=== PATIENT | male | born 1940 | race Caucasian/White ===

== ENCOUNTER 2017-07-29 07:53 | Inpatient (IN) | payer MEDICARE, OTHER ==
[2017-07-29] VITALS (7 sets, daily range): BP systolic 107–129; BP diastolic 49–77
[~2017-07-29] VITALS: Ht 185 cm; Wt 100.0 kg
--- NOTE | ~2017-07-29 | PR ---
[place], [place] PROGRESS NOTE NAME: JESSIE VIVEROS UNIT #: [id number] ROOM: 509 DOCTOR: KRISSY LE MD BIRTHDATE: [birth year] DOS: 08/12/2017 PULMONARY ADDENDUM NOTE SUBJECTIVE: The patient was independently seen and examined with tcni-hl-[id number] encounter. History was confirmed. All the available labs were reviewed. The assessment for this patient and management were personally completed for today's visit. Note done by the medical pathologist was approved as well. The patient is currently kept n.p.o. last midnight for the scheduled bronchoscopy that will be done today. He has not reported any headache, nausea, vomiting, diarrhea, dizziness, headache or any new focal neurologic deficit. OBJECTIVE: VITAL SIGNS: For the patient which was recorded showed normal temperature, respiratory rate of 12, heart rate 82, blood pressure 120/78, pulse oxygen saturation on 2 liters nasal cannula at 94% saturation. HEENT: Shows no new change. Head was atraumatic. Eyes nonicterus. NECK: Supple. CARDIOVASCULAR: S1, S2 was audible. LUNGS: Noted with [id number] decreased breath sounds. There was no wheezing or crackles heard. ABDOMEN: Soft, nontender. EXTREMITIES: Without any edema. SKIN: No lesions or rashes. MUSCULOSKELETAL: No deformities. CENTRAL NERVOUS SYSTEM: The patient with right hemiparesis. LABORATORY DATA: The labs today for the patient was noted as normal BMP, except albumin 3.0. Urine culture with no bacterial growths. IMPRESSION: 1. Persistent severe nonproductive cough, suspected mucus impaction with the resolution of recent influenza infection and acute pneumonia, already treated and with completion of treatment. Small bilateral pleural fluid was also noted stable. 2. 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 3. Overall debility secondary to current acute illness. PLAN OF MANAGEMENT: Proceed with the bronchoscopy. Continue bronchodilators and other treatment as previously in progress. Any modification in treatment of the patient if necessary will be done after the bronchoscopy. Other supportive plan of management, care and therapies. [place], [place] PROGRESS NOTE NAME: JESSIE VIVEROS UNIT #: [id number] ROOM: 509 DOCTOR: AZIZ KRISSY SHERMAN MD BIRTHDATE: [birth year] KRISSY JIMENES MD CM:MANGO [phone] KRISSY SHERMAN MD 08/13/17 0132 interface
--- NOTE | ~2017-07-29 | PR ---
[place], [place] PROGRESS NOTE [id number] UN[facility] #: [id number] ROOM: 509 DOCTOR: JALIL SHERMAN MDKRISSY BIRTHDATE: [birth year] DOS: 08/11/2017 PULMONARY PROGRESS NOTE SUBJECTIVE: The patient was sitting on the side of his bed, eating his food. Mental status changes of the patient which were noted yesterday seemed to be better. CT scan of the head was done yesterday does not show any acute stroke or other abnormalities. The patient was noted excessive severe coughing, which has been noted episodic, could last several minutes with inability to expectorate any sputum. He was noted general weakness and fatigue. There were no symptoms of headache or diplopia. The patient has been noted history of past CVA with hemiparesis on the right side and general weakness persisted. Denies symptoms of wheezing. There were no abdominal pain. Diarrhea was noted. Abdominal pain also improved. OBJECTIVE: VITAL SIGNS: For the patient which has been recorded showed the temperature noted as normal, respiratory rate 16, heart rate of 85, blood pressure 123/72. HEENT: Shows head was atraumatic. Eyes nonicterus. NECK: Supple. CARDIOVASCULAR: S1, S2 is audible. LUNGS: Noted with [id number] decreased breath sounds bilaterally without any wheezing or crackles. ABDOMEN: Flat, soft, nontender. Bowel sounds present. EXTREMITIES: Without any acute edema. MUSCULOSKELETAL: No deformities. CENTRAL NERVOUS SYSTEM: Mild right hemiparesis. SKIN: Visible skin: No lesions or rashes. LABORATORY DATA: CBC today: WBC counts were normal, platelet count was normal hemoglobin 12.1. CT scan of the head without contrast. No acute intracranial abnormalities were noted. CMP of the patient of this morning, normal BUN and creatinine. Potassium 3.2. IMPRESSION: 1. The patient who has been currently noted with severe nonproductive cough, suspected mucus impaction, resolved acute pneumonia with influenza infection as well. 2. Persistent hemiparesis, generalized debility as well. 3. Enteritis of this patient most likely viral in origin also improving gradually. PLAN OF MANAGEMENT: The patient was suggested therapeutic bronchoscopy because of coughing, suspected mucus impaction, major airway was seen. The treatment plan for the patient at this time will be continued. The consent and the procedure were discussed with the patient's son and the patient himself. Both were noted in agreement for the procedure to be scheduled. Procedure was scheduled to be done tomorrow morning. The patient would be continued for other therapy, plan of management at this time. The NPO past midnight status was achieved. Additional treatment changes for the patient would be done based on [place], [place] PROGRESS NOTE NAME: JESSIE VIVEROS UNIT #: [id number] ROOM: [facility] DOCTOR: JALIL SHERMAN MD,KRISSY BIRTHDATE: [birth year] the progression of the illness. KRISSY JIMENES MD CM:PNTRANS [phone] KRISSY SHERMAN MD 08/12/17 0105 interface
--- NOTE | ~2017-07-29 | PR ---
[place], [place] PROGRESS NOTE NAME: JESSIE VIVEROS UNIT #: [id number] ROOM: 509 DOCTOR: JALIL SHERMAN MD,KRISSY BIRTHDATE: [birth year] DOS: 08/08/2017 SUBJECTIVE: He has been noted comfortable from pulmonary standpoint. The patient has been assessed yesterday for persistent diarrhea. The endoscopy was done for the patient. He has been started on the Flagyl. The abdominal pain was described at times. OBJECTIVE: VITAL SIGNS: For the patient, which has been recorded shows the temperature noted as normal. The respiratory rate recorded as 18, heart rate of 64, blood pressure 145/64. HEENT: No acute change. NECK: Supple. CARDIOVASCULAR: S1, S2 audible. LUNGS: Without any wheeze or crackles. ABDOMEN: Soft with some tenderness noted. Nonspecific. EXTREMITIES: Without any acute edema. IMPRESSION: 1. Resolution of the acute pneumonia with antiviral therapy. 2. Acute enteritis, etiology is unclear, currently treated with Flagyl, underwent colonoscopy yesterday as well. PLAN OF MANAGEMENT: Continuation of the current therapy as previously in progress. Usual care, other supportive plan of management and care. Additional treatment changes to be made based on the progression of the illness. KRISSY JIMENES MD CM:PNTRANS [phone] KRISSY SHERMAN MD 08/09/17 0104 interface
--- NOTE | ~2017-07-29 | PR ---
[place], [place] PROGRESS NOTE NAME: JESSIE VIVEROS UNIT #: [id number] ROOM: 509 DOCTOR: JUAN HAMMONDS DO BIRTHDATE: [birth year] DOS: 08/12/2017 SUBJECTIVE: The patient was seen and examined at bedside before the bronchoscopy this morning. The patient was in no acute distress. The patient reports that he is feeling better; however, he continues to have a mild cough and shortness of breath. The patient tolerated the bronchoscopy well. OBJECTIVE: VITAL SIGNS: Temperature 98.4, pulse is 82, respirations 12, blood pressure 121/78, pulse ox 99% on 3 liters nasal cannula. GENERAL APPEARANCE: The patient awake, alert and oriented times 3, no acute distress. HEENT: Eyes are clear. No injection. Nares are patent. Mucous membranes are moist. NECK: Supple, nontender. CARDIOVASCULAR: Regular rate and rhythm, no murmurs, gallops or rubs. PULMONARY: Clear to auscultation. No wheezes, rales or rhonchi. ABDOMEN: Soft, nontender with positive bowel sounds. LABORATORY DATA: Chemistries were reviewed this morning. No gross acute change from prior. Blood cultures remain negative. Stool cultures remain negative. Urine cultures remain negative. Bronch washings are sent this morning for review. IMPRESSION: 1. Severe nonproductive cough with suspected mucus impaction. 2. Resolved acute pneumonia. 3. Resolved influenza infection. 4. Persistent hemiparesis and generalized debility. 5. Enteritis, most likely of a viral origin. PLAN: The patient had a bronchoscopy performed this morning. The patient tolerated procedure well. Mucus plugging was disimpacted and removed. Continue with current respiratory therapy. The patient anticipated to improve. The patient is clinically improving from a pulmonary standpoint, we will continue to follow. No change in current treatment at this time. JUAN HAMMONDS DO [place], [place] PROGRESS NOTE NAME: JESSIE VIVEROS UNIT #: [id number] ROOM: 509 DOCTOR: JUAN HAMMONDS DO BIRTHDATE: [birth year] KRISSY JIMENES MD CM:PNZHANNA [phone] JUAN HAMMONDS DO 08/12/17 2328 interface
--- NOTE | ~2017-07-29 | PR ---
[place], [place] PROGRESS NOTE NAME: JESSIE VIVEROS UNIT #: [id number] ROOM: 516 DOCTOR: JALIL SHERMAN MD,KRISSY BIRTHDATE: [birth year] DOS: 08/04/2017 SUBJECTIVE: The patient was noted comfortable at this time. General weakness, fatigue were noted. Coughing has been noted mild dry for this patient. There was no sputum expectoration. Denies symptoms of chest pain or any acute hemoptysis. The patient was sitting on the side of the bed at this time. OBJECTIVE: VITAL SIGNS: For the patient, which were recorded at 8 o' clock this morning; temperature normal, respiratory rate 18, heart rate of 86, blood pressure earlier was recorded 160/81. Pulse oxygen saturation recorded on room air 96% saturation. HEENT: Examination shows chronic changes. NECK: Supple. Head was atraumatic. CARDIOVASCULAR: S1, S2 is audible. LUNGS: Noted without any wheeze or crackles at the present time. ABDOMEN: Soft, nontender. EXTREMITIES: Noted without any acute edema. IMPRESSION: The patient with resolving acute pneumonia with influenza A infection. The patient with progressive general debility. Coughing for the patient has been improving as a result of the current acute infection, which is resolving. PLAN OF TREATMENT: No changes from the pulmonary standpoint or medical management, awaiting for acceptance and authorization from the insurance to the custodial facility. KRISSY JIMENES MD CM:PNTRANS [phone] KRISSY SHERMAN MD 08/05/17310 interface
--- NOTE | ~2017-07-29 | PR ---
[place], [place] PROGRESS NOTE NAME: JESSIE VIVEROS UNIT #: [id number] ROOM: 509 DOCTOR: JALIL SHERMAN MD,KRISSY BIRTHDATE: [birth year] DOS: 08/10/2017 SUBJECTIVE: The patient has been noted with some confusional status this morning, sitting on a chair per the patient, his son was present in the room with the patient. The cough has been described intermittently nonproductive. There were no symptoms of chest pain reported. OBJECTIVE: VITAL SIGNS: For the patient which has been recorded shows the temperature noted as normal. The respiratory rate of the patient recorded as 20, heart rate 68, blood pressure 108/68. The pulse oxygen saturation of the patient recorded as 98% on 2 liters nasal cannula. HEENT: No acute change. CARDIOVASCULAR: S1, S2 audible. LUNGS: Without any wheeze or crackles. ABDOMEN: Soft, nontender, bowel sounds present. EXTREMITIES: Without any acute edema. IMPRESSION: 1. Bilateral small pleural fluid noted with basilar area of atelectasis, resolved acute pneumonia with influenza A infection. 2. Change in mental status, etiology unclear. PLAN OF TREATMENT: No changes from pulmonary followup for the patient at this time. Continue the supportive therapy, plan of management, other care, plan of management and treatment. KRISSY JIMENES MD CM:PNTRANS [phone] KRISSY SHERMAN MD 08/11/17 0026 interface
--- NOTE | ~2017-07-29 | EKG ---
[place], [place] ELECTROCARDIOGRAM REPORT NAME: JESSIE VIVEROS UNIT #: [id number] ROOM: 516 DOCTOR: JALIL SHERMAN MD,KRISSY BIRTHDATE: [birth year] DOS: 07/29/2017 The electrocardiogram was done on 07/29/2017 at 8:29 a.m. Normal sinus rhythm noted. Heart rate 69 beats per minute. Nonspecific ST-T changes noted in the inferior leads. KRISSY JIMENES MD CM:EKGRPT:ELECTROCARDIOGRAM REPORT [id number] KRISSY SHERMAN MD
--- NOTE | ~2017-07-29 | EKG ---
[place], [place] ELECTROCARDIOGRAM REPORT NAME: JESSIE VIVEROS UNIT #: [id number] ROOM: 509 DOCTOR: JALIL SHERMAN MD,KRISSY BIRTHDATE: [birth year] DOS: 08/11/2017 Electrocardiogram was done on 08/11/2017, at 10:40 a.m. Normal sinus rhythm noted with heart rate of 77 beats per minute. There are no changes of ischemia. Possibility of chronic inferior myocardial infarction would be considered. KRISSY JIMENES MD CM:EKGRPT:ELECTROCARDIOGRAM REPORT [id number] KRISSY SHERMAN MD
--- NOTE | ~2017-07-29 | PR ---
[place], [place] PROGRESS NOTE NAME: JESSIE VIVEROS UNIT #: [id number] ROOM: 516 DOCTOR: JALIL SHERMAN MD,KRISSY BIRTHDATE: [birth year] DOS: 08/07/2017 The patient was seen and examined in hotb-hl-xxab encounter. History was confirmed. Physical examination was performed. Assessment and management for the patient was personally made for today's visit. Note done by the medical sonographer was approved. SUBJECTIVE: The patient has been currently awaiting for colonoscopy done today for current abdominal pain and diarrhea. The patient denies abdominal pain. Denies acute shortness of breath, coughing, or wheezing or any chest pain. OBJECTIVE: VITAL SIGNS: Normal temperature, respiratory rate 21, heart rate 71, blood pressure was normal. Pulse oxygen saturation on room air was 96% saturation. LUNGS: Noted clear to auscultation bilaterally. ABDOMEN: Soft and mildly hyperactive bowel sounds. IMPRESSION AND PLAN: Stable respiratory status, noted at the present time with resolving acute pneumonia secondary to the influenza A infection and continued improvement in respiratory status, abdominal problem with enteritis currently being continued to be investigated by the GI services with the colonoscopy to be done today. KRISSY JIMENES MD CM:PNTRANS [phone] KRISSY SHERMAN MD 08/08/17 0140 interface
--- NOTE | ~2017-07-29 | PR ---
[place], [place] PROGRESS NOTE NAME: JESSIE VIVEROS UNIT #: [id number] ROOM: 509 DOCTOR: JALIL SHERMAN MD,KRISSY BIRTHDATE: [birth year] DOS: 08/13/2017 SUBJECTIVE: He has been noted comfortable at this time without any distress. Bronchoscopy completed yesterday. Reduction in the cough is noted, however, coughing resolution noted incomplete. There were symptoms of shortness of breath reported. There were no abdominal pain or other acute symptoms reported. OBJECTIVE: VITAL SIGNS: Normal temperature, respiratory rate 20, heart rate 100, blood pressure 140/77, pulse oxygen saturation on room air was 97% saturation recorded. HEENT: No acute change. CARDIOVASCULAR: S1, S2 audible. LUNGS: Clear of any wheezing or crackles. ABDOMEN: Soft, nontender. EXTREMITIES: No edema. LABORATORY DATA: Preliminary culture of the bronchial washing shows moderate growth of yeast with Gram stain, many white blood cells, few budding yeast, rare gram-positive bacilli from yesterday bronchial washings. IMPRESSION: Stable respiratory status, resolving cough in the patient after extraction of the mucus plug in the patient's major airways and bronchoscopy gradually. Resolution passed Influenza A pneumonia. PLAN OF TREATMENT: No changes in the plan of therapy for the patient at this time will be needed. Other previous treatment previously will be continued without any changes. Supportive care and other therapy. Usual medical management, plan of care. KRISSY JIMENES MD CM:PNTRANS [phone] KRISSY SHERMAN MD 08/13/17 2315 interface
--- NOTE | ~2017-07-29 | O ---
[place], [place] OPERATIVE NOTE NAME: JESSIE VIVEROS UNIT #: [id number] ROOM: 516 DOCTOR: HARPAL OROSCOTOREY BIRTHDATE: [birth year] DOS: 08/07/2017 HISTORY OF PRESENT ILLNESS: A 76-year-old patient, who presented with nausea, vomiting, shortness of breath, diarrhea, and post-antibiotic therapy, on vancomycin. White blood cell has been 5, H and H of 10 and 31, and platelet of 119. Chest x-ray, which was minimal interstitial disease and scarring. CBC differential continued to be borderline anemic. Electrolytes were balanced. C. diff study negative. BUN and creatinine, GFR greater than 60. Diarrhea continued. Hepatic function test, unremarkable, but he remains borderline thrombocytopenic. Latest platelets recovered to 185, normal platelets. PAST MEDICAL HISTORY: CVA and atrial fibrillation, history of congestive heart failure, history of COPD, and history of coronary artery disease. SOCIAL HISTORY: Passive smoker for life. No alcohol history. FAMILY HISTORY: Noncontributory. MEDICATIONS: List has been Eliquis, aspirin, and ibuprofen amongst the other reviewed. ALLERGIES: Allergies to no known medications. PROCEDURE: Today's procedure as part of investigation of diarrhea with C. diff negativity is colonoscopy. PREMEDICATION: Versed and Diprivan. SCOPE: Olympus folding colonoscope 10L video. REPORT: After putting the patient in left lateral position and application of lubricant to rectal pouch and digital examination, scope was introduced. Thereafter, under direct visualization, advanced through the length of colon without difficulty to about hepatic flexure. Liquid stool was encountered. However, I did not see any evidence of active bleeding and limitations of retention of liquid stool in the ascending colon compromised to some vision. The patient extubated, tolerated procedure well. IMPRESSION: Normal colonoscopic examination with limitations above. PLAN AND DISCUSSION: We are going to proceed with feeding and viral gastroenteritis could be a culprit; however, his borderline anemia also can be explained perhaps because of the antiplatelets onboard and gradual blood loss associated with antiplatelets as well as nonsteroidal anti-inflammatory. PLAN: Supportive management, regular diet, clinical eval. [place], [place] OPERATIVE NOTE NAME: JESSIE VIVEROS UNIT #: [id number] ROOM: 516 DOCTOR: TOREY ROWAN MD BIRTHDATE: [birth year] TOREY ROWAN MD CM:OPRECORD:OPERATIVE NOTE [phone] TOREY ROWAN MD 08/07/17 1819 interface
--- NOTE | ~2017-07-29 | PR ---
[place], [place] PROGRESS NOTE NAME: JESSIE VIVEROS UNIT #: [id number] ROOM: 509 DOCTOR: JALIL SHEMRAN MD,KRISSY BIRTHDATE: [birth year] DOS: 08/09/2017 SUBJECTIVE: The patient has been noted sick as per daughter. He is still having diarrhea intermittently. He has been noted the coughing with inability to expectorate sputum per daughter. The patient was not noted any symptoms of shortness breath, currently noted comfortably resting on the bed. OBJECTIVE: VITAL SIGNS: Normal temperature, respiratory rate 20, heart rate 62, blood pressure 90/71, pulse ox saturation on room air 94% saturation. HEENT: Showed no acute change. NECK: Supple. CARDIOVASCULAR: S1, S2 audible. LUNGS: The patient was noted without any wheezing or crackles. Mild decreased breaths in lower portion of the lungs. ABDOMEN: Soft, nontender. EXTREMITIES: Without any acute edema. IMPRESSION: 1. Recent medical management of acute viral pneumonia with influenza pneumonia. 2. Acute enteritis. 3. Cough related most likely mucus impaction. There was no clinical evidence of pneumonia. PLAN OF TREATMENT: Continuation of current therapy, plan and management previously in progress. No new changes in the treatment will be necessary. Addition of changes in the treatment will be done based on progression of the illness. KRISSY JIMENES MD CM:PNTRANS [phone] KRISSY SHERMAN MD 08/09/171839 interface
--- NOTE | ~2017-07-29 | PR ---
[place], [place] PROGRESS NOTE NAME: JESSIE VIVEROS UNIT #: [id number] ROOM: 516 DOCTOR: JUAN HAMMONDS DO BIRTHDATE: [birth year] DOS: 08/05/2017 SUBJECTIVE: The patient was seen and examined at bedside. The patient is sitting in a chair at bedside, in no acute distress. The patient reports that he continues to have diarrhea; however, no complaints of respiratory symptoms at this time. The patient continues to have improvement of his respiratory symptoms. OBJECTIVE: VITAL SIGNS: Temperature 98.2, pulse is 53, respirations 18, blood pressure 125/55, pulse ox is 94% on room air. GENERAL APPEARANCE: The patient is alert and awake and oriented times 3. No acute distress. HEENT: Eyes are clear. Nares are patent. Mucous membranes are moist. NECK: Supple, nontender. CARDIOVASCULAR: Regular rate and rhythm, S1 and S2 noted. PULMONARY: Clear to auscultation. No wheezes, rales or rhonchi. ABDOMEN: Soft, nontender with positive bowel sounds. EXTREMITIES: Upper and lower extremities are clear of edema and erythema LABORATORY DATA: Blood cultures remain negative. Stool culture was negative for C. diff. Urine culture was negative. Flu was positive. CT abdomen and pelvis performed last night shows small bowel and colonic loops that are mildly dilated and fluid filled, possible enteritis. Small bilateral pleural effusions, multiple gallstones, small bilateral inguinal hernias, nonspecific mild bladder prominence. IMPRESSION AND PLAN: 1. Influenza, continue Tamiflu. 2. Acute pneumonia, resolving. 3. General debility. The patient is medically clear from pulmonary standpoint for discharge. The patient is working on insurance to go to a [facility] facility for ongoing care. We will continue to follow the patient while the patient remains hospitalized. JUAN HAMMONDS DO [place], [place] PROGRESS NOTE NAME: JESSIE VIVEROS UNIT #: [id number] ROOM: 516 DOCTOR: JUAN HAMMONDS DO BIRTHDATE: [birth year] KRISSY JIMENES MD CM:MANGO [phone] JUAN HAMMONDS DO 08/05/17 1402 interface
--- NOTE | ~2017-07-29 | PR ---
[place], [place] PROGRESS NOTE NAME: JESSIE VIVEROS UNIT #: [id number] ROOM: 516 DOCTOR: JUAN HAMMONDS DO BIRTHDATE: [birth year] DOS: 08/07/2017 SUBJECTIVE: The patient is seen and examined at bedside. The patient was sitting upright in 30 degree angle incline in no acute distress. The patient was resting but was aroused easily and is awake and alert. The patient reports that he continues to have some abdominal pain and diarrhea overnight. No respiratory complaints. The patient denies cough, fever, chills, wheezing or sputum production. OBJECTIVE: VITAL SIGNS: Temperature 98.0, pulse 62, respirations 18, blood pressure 140/65, pulse ox is 95% on room air. GENERAL APPEARANCE: The patient is alert and awake and oriented times 3, in mild distress. HEENT: Eyes are clear. No injection. Nares are patent. Mucous membranes are moist. NECK: Supple, nontender. CARDIOVASCULAR: Regular rate and rhythm, no murmurs, gallops or rubs. PULMONARY: Clear to auscultation. No wheezes, rales or rhonchi. ABDOMEN: Soft, nontender, positive bowel sounds. EXTREMITIES: There is 2+ edema bilaterally in the lower extremities, no erythema, no clubbing, no cyanosis. NEUROLOGIC: Negative for focal deficits. LABORATORY DATA: CBC and BMP were reviewed, no acute change from prior labs. Flu swab is positive for flu A. Blood cultures remain negative. Stool culture was negative for C. diff. Repeat culture yesterday for C. diff is pending. Urine cultures remain negative. ASSESSMENT: 1. Flu A. The patient is to continue Tamiflu course until tomorrow for his last dose. 2. Enteritis. The patient is scheduled for a colonoscopy with Dr. Trejo this morning. We will await the results of that. 3. Peripheral edema. 4. Intractable diarrhea. TREATMENT PLAN: As discussed, we will continue Tamiflu until tomorrow when the last dose is due. Continue antibiotics, bronchodilators and steroids also as prescribed. There has been some gradual improvement of the patient's respiratory status and continues to be stable. The patient is cleared from a pulmonary standpoint for discharge pending the results of the colonoscopy with Dr. Trejo. JUAN HAMMONDS DO [place], [place] PROGRESS NOTE NAME: JESSIE VIVEROS A UNIT #: [id number] ROOM: [facility] DOCTOR: JUAN HAMMONDS DO BIRTHDATE: [birth year] KRISSY JIMENES MD CM:MANGO [phone] JUAN HAMMONDS DO 08/07/17 1229 interface
--- NOTE | ~2017-07-29 | PR ---
[place], [place] PROGRESS NOTE NAME: JESSIE VIVEROS UNIT #: [id number] ROOM: 516 DOCTOR: JALIL SHERMAN MD,KRISSY BIRTHDATE: [birth year] DOS: 08/03/2017 SUBJECTIVE: He has not been noted with any ongoing acute complaints. General weakness, fatigue were noted. The patient was complaining of some abdominal pain that has not been noted severe. OBJECTIVE: VITAL SIGNS: Normal temperature this morning, respiratory rate 18, heart rate 59, blood pressure 153/64, pulse oxygen saturation recorded as 98% on room air. HEENT: No acute change. NECK: Supple. CARDIOVASCULAR: S1, S2 audible. LUNGS: The patient is without any crackles, rhonchi, or wheezing at this time. ABDOMEN: Soft. Bowel sounds are present without tenderness. EXTREMITIES: Without any acute edema. IMPRESSION: 1. Progressive resolution of acute viral pneumonia with influenza A, a viral infection. 2. Debility. 3. History of cerebrovascular accident with residual mild hemiparesis. PLAN OF MANAGEMENT: Physical therapy and occupational therapy previously ordered will be continued. Other previous treatment as ordered will be continued without any changes. Supportive therapy, plan of management and care. KRISSY JIMENES MD CM:PNTRANS [phone] KRISSY SHERMAN MD 08/05/17 2310 interface
--- NOTE | ~2017-07-29 | PR ---
[place], [place] PROGRESS NOTE NAME: [facility]OS [id number] UN[facility] #: [id number] ROOM: 516 DOCTOR: JUAN HAMMONDS DO BIRTHDATE: [birth year] DOS: 07/31/2017 SUBJECTIVE: The patient is seen and examined at bedside. The patient reports that his shortness of breath has worsened since yesterday. He feels under the whether, in general sense has fatigue and malaise. No improvement in his breathing per the patient. OBJECTIVE: VITAL SIGNS: Temperature is 98.2, pulse is 60, respirations 18, blood pressure 136/69, pulse ox is 94% on room air. GENERAL APPEARANCE: The patient is alert, awake and oriented times 3, in mild to moderate distress. HEENT: Eyes are clear. No injection. Nares are patent. No discharge. Oropharynx is clear. Mucous membranes are moist. NECK: Supple, nontender, no lymphadenopathy. PULMONARY: Expiratory wheezing, no rales, no rhonchi. CARDIOVASCULAR: Regular rate and rhythm, no murmurs, gallops or rubs. ABDOMEN: Soft, nontender with positive bowel sounds. EXTREMITIES: Upper and lower extremities are clear of edema and erythema. NEUROLOGIC: Negative for focal deficits LABORATORY DATA: White count 5.0, hemoglobin 10.6, hematocrit 31.6, platelets count 119. Sodium 144, potassium 3.7, chloride 111, carbon dioxide 25, BUN 19, creatinine 1.07, glucose is 89, calcium 7.9. Coagulation profile normal. Legionella and strep pneumo organisms are pending. Flu was positive for flu A. Blood cultures remain negative. Urine cultures remain negative. Chest x-ray from this morning shows COPD with minimal interstitial disease in the lower lobes which is possibly representing a resolving pneumonia versus scarring in a patient with COPD. IMPRESSION: 1. Influenza. 2. Pneumonia secondary to flu with suspected staph aureus. 3. Acute on chronic respiratory failure. PLAN: Continue with DuoNeb, azithromycin, Rocephin. Vancomycin was discontinued. Continue with Tamiflu, Solu-Medrol, DuoNeb. We will continue to assess the patient for improvement of symptoms. JUAN HAMMONDS DO [place], [place] PROGRESS NOTE NAME: JESSIE VIVEROS UNIT #: [id number] ROOM: 516 DOCTOR: JUAN HAMMONDS DO BIRTHDATE: [birth year] KRISSY JIMENES MD CM:PNZHANNA [id number] JAUN HAMMONDS DO 08/01/17 0457 interface
--- NOTE | ~2017-07-29 | CON ---
[place], [place] REPORT OF CONSULTATION NAME: JESSIE VIVEROS UNIT #: [id number] ROOM: 516 DOCTOR: KRISSY LE MD BIRTHDATE: [birth year] DOS: 07/30/2017 PULMONARY CONSULTATION, EVALUATION AND MANAGEMENT CONSULTATION REQUESTED BY: Hospitalist service. REASON FOR CONSULTATION: Positive influenza A infection and possibility of acute pneumonia. HISTORY OF PRESENT ILLNESS: This 76-year-old white male patient who has been admitted to the hospital as the patient reported symptoms of increased coughing with shortness of breath. The patient started with symptoms 3 days ago with sore throat, headache, dry cough and generally weak. The patient denies any fever or chills. Denies symptoms of chest pain. He came into the Emergency Room for further assessment. The patient has been diagnosed with influenza A infection with the nasal washing and molecular testing. He has been started on Tamiflu. The patient denies symptoms of ____ reported as per son. The patient states ____ at least try to getting up this morning. He was not noted by himself as per son of the patient who also assisted in the history of this patient. The patient denies any symptoms of chest pain. He has been noted previous respiratory illness and was given Z-Elliott. He received this vaccination, flu vaccine, for this year previously. REVIEW OF SYSTEMS: CONSTITUTIONAL SYMPTOMS: He was still noted general weak and fatigue and that persisted. There were symptoms of fever or chills reported. Denies changes of appetite. EYES: Denies any burning, dryness, redness. EARS, NOSE, AND THROAT: He has symptoms of sore throat at the present time. Sore throat occurred previously. Seemed to be better. There were no symptoms of epistaxis, earache or discharge. CARDIOVASCULAR: Denies anginal pain, edema, or pain of the lower extremities. GASTROINTESTINAL SYMPTOMS: The patient reported no symptoms of dysphagia, nausea, vomiting, diarrhea, abdominal pain, hematemesis, melena or any abnormal weight loss history. GENITOURINARY SYMPTOMS: No symptoms of dysuria, suprapubic pain or hematuria. CENTRAL NERVOUS SYSTEM: The patient denies symptoms of dizziness or headache ____ weakness. Past history of CVA with right hemiparesis is noted as per the patient. SKIN: Denies lesions, rashes or ulcers. MUSCULOSKELETAL: There were no acute joint pain or redness described. Remaining systems were reviewed for the patient, they were noted all negative. PAST MEDICAL HISTORY: 1. Noted with acute stroke for this patient that occurred a couple of years ago. The patient's son stated he has been noticed stroke 2 or 3 times in 06/2015 with persistent right hemiparesis, but able to walk with use of the walker. 2. History of peripheral neuropathy. [place], [place] REPORT OF CONSULTATION NAME: JESSIE VIVEROS UNIT #: [id number] ROOM: 516 DOCTOR: MAICO LE MDM BIRTHDATE: [birth year] 3. Paroxysmal atrial fibrillation. 4. History of COPD reported. 5. Acute congestive heart failure. 6. History of coronary artery disease. 7. Congestive heart failure, systolic, diastolic was unknown. SOCIAL HISTORY: The patient was described nonsmoker lifetime. There was no history of alcohol use, illicit drug use. The patient currently lives at home and has two children. FAMILY HISTORY: The patient reported both parents . The father from complication of COPD. Mother from complication related to diabetes mellitus. MEDICATIONS: Home medications listed as Eliquis, aspirin, Lipitor, Lasix, Neurontin, ibuprofen, metoprolol tartrate, multivitamin, potassium chloride, Mirapex and Florastor. DRUG ALLERGIES: Noted with no known drug allergies. PHYSICAL EXAMINATION: GENERAL: This is a 76-year-old white male patient who has been currently noted awake and alert without any distress. Height of 6 feet 1 inch, weight of 220 pounds, BMI 29. VITAL SIGNS: At the time of assessment, the temperature noted as max as 99.0 degree Fahrenheit, respiratory rate 18-20, heart rate of 58-68, blood pressure 115 over 65 to 120 over 56 recorded previously. The pulse oxygen saturation on room air was recorded at 95% saturation. HEENT: Relatively limited examination. Head was atraumatic. Eyes nonicterus. NECK: Supple. CARDIOVASCULAR: S1, S2 are audible. LUNGS: The patient was noted with moderate reduction of the breath sounds bilaterally with minimal crackles at the right lung base. ABDOMEN: Noted soft, flat and nontender. EXTREMITIES: The patient without any acute edema, clubbing or cyanosis. CENTRAL NERVOUS SYSTEM: Right hemiparesis was noted. SKIN: Visible skin. no lesions or rashes. LABORATORY DATA: Influenza A and B nasal washing antigen noted positive influenza A. The CMP that was done yesterday; BUN 26, creatinine 1.75, and the magnesium 2.3. ProBNP 1371. The PT and PTT ____. CBC on 07/30/2017 showed WBC count normal, hemoglobin 11.2, hematocrit of 32.9, and platelet count 125,000. This morning, the CBC that was done yesterday; WBC count normal, hemoglobin 12.6, hematocrit 36.7, platelet count was normal at that time. The PT and PTT this morning are normal. The CMP repeated this morning showed normal BUN and creatinine and total protein of 5.4. IMAGING STUDIES: Chest x-ray, one-view, which was taken in the Emergency Room was noted to have a small basilar area of infiltration without ____ finding of congestive heart failure or other abnormalities. Chest x-ray was personally [place], [place] REPORT OF CONSULTATION NAME: JESSIE VIVEROS UNIT #: [id number] ROOM: 516 DOCTOR: JALIL SHERMAN MD,[facility] BIRTHDATE: [birth year] reviewed from the PACS images. IMPRESSION: 1. Influenza pneumonia for this patient with influenza A infection, superimposed bacterial infection cannot be completely excluded for the patient at this time. 2. History of past cerebrovascular accident. The patient with persistent right hemiparesis. 3. Acute kidney injury secondary to intravascular volume depletion with current acute infection and decreased oral intake would be likely. Resolution of the acute kidney has occurred. 4. Mild thrombocytopenia, most likely related to current acute viral infection. PLAN OF MANAGEMENT: Agree with use of Tamiflu, which has been given to this patient at the present time as 75 mg p.o. b.i.d. It is the appropriate dosing. Continue the Zithromax. The patient had Rocephin. Certainly, the vancomycin could be discontinued for the patient at the present time and not needed after the culture results of the blood will be reviewed. Another PA lateral chest x-ray will be done in the morning to reassess the progression of the current pneumonia. Other supportive therapy, plan of management to be continued as well. Usual care with additional treatment changes will be done accordingly. Consider the physical therapy and occupational therapy with current debility and stroke for this patient. Other usual treatment changes will be made for the patient based on the progression of the illness. Assessment and management of the patient and the current ongoing acute problem has been discussed with the patient's son in detail. Thanks for allowing me to participate in the care of this patient. KRISSY JIMENES MD CM:CONSTR:REPORT OF CONSULTATION 1715 07/31/17 0659 interface
--- NOTE | ~2017-07-29 | EKG ---
[place], [place] ELECTROCARDIOGRAM REPORT NAME: JESSIE VIVEROS UNIT #: [id number] ROOM: 509 DOCTOR: USHA HAMMOND MD BIRTHDATE: [birth year] DOS: 08/09/2017 TIME: 2047 hours. Atrial fibrillation with a ventricular rate of 156 beats per minute. Moderate left axis deviation. There is mild ST segment depression in V3 to V6 and that raises the possibility of anterolateral ischemia. An abnormal ECG. No previous tracing is available for comparison. USHA HAMMOND MD CM:EKGRPT:ELECTROCARDIOGRAM REPORT [id number] USHA HAMMOND MD
--- NOTE | ~2017-07-29 | PR ---
[place], [place] PROGRESS NOTE NAME: JESSIE VIVEROS UNIT #: [id number] ROOM: 516 DOCTOR: JALIL SHERMAN MD,KRISSY BIRTHDATE: [birth year] DOS: 08/06/2017 PULMONARY PROGRESS NOTE SUBJECTIVE: The patient was independently seen and examined with [id number] encounter. History was confirmed, physical examination performed. Labs reviewed. Assessment and management for today's note was completed. The note done by the district medical examiner was approved. The patient has been noted improvement in the respiratory status progressively, currently treated for enteritis as well as some bowel problem. The patient is still complaining of pain. The patient denies symptoms of hemoptysis or any chest pain. Shortness of breath has resolved. OBJECTIVE: VITAL SIGNS: Essentially noted normal. The pulse oxygen saturation on room air remains normal as well. LUNGS: Noted without any wheezing or crackles. ABDOMEN: Noted with tenderness on palpation. Bowel sounds mildly hyperactive. EXTREMITIES: Without any acute edema. LABORATORY DATA: LFT for the patient: Total protein 5.7, otherwise normal. IMPRESSION: 1. The patient with acute influenza pneumonia, which has been improving progressively with current medical management. 2. Enteritis, viral or bacteria, currently being treated and assessed by the primary care physician as well. PLAN OF MANAGEMENT: No changes from the pulmonary standpoint the medical management with completion of total 10 days of antibiotic therapy for the patient's influenza and pneumonia. Other supportive plan of management and care. KRISSY JIMENES MD CM:PNTRANS [phone] KRISSY SHERMAN MD 08/07/17 0336 interface
--- NOTE | ~2017-07-29 | PROC NOTE ---
[place], [place] PROCEDURE NOTE NAME: JESSIE VIVEROS UNIT #: [id number] ROOM: 509 DOCTOR: JALIL SHERMAN MD,KRISSY BIRTHDATE: [birth year] DOS: 08/12/2017 BRONCHOSCOPY NOTE PREOPERATIVE DIAGNOSIS: ____ ineffective sputum expectoration with maximum medical therapy. POSTOPERATIVE DIAGNOSES: Large plugs and mucus from the bilateral lower endobronchial tree. PROCEDURE DESCRIPTION: Informed consent obtained for the patient. The patient brought to the OR and placed in supine position. Conscious sedation administered by the Anesthesia Department. After achieving proper sedation, airway introduced into the mouth. Bronchoscope advanced to the airway into the laryngeal area. The epiglottis vocal cord seen. The bronchoscope went to vocal cord tracheal lumen, which was moving symmetric with the movements. The tracheal lumen noted with small to moderate amount thick mucus secretion suctioned out to the miladis level. Right upper, right middle, right lower, left upper, lingula all lower lobe all the bronchi was inspected. Moderate amount of thick plugs of mucus present mainly in the lower end bronchial tree bilaterally. All secretions suctioned out. Half normal saline wash, sent for cultures. Procedure well tolerated by the patient without difficulty. Postoperative finding of the patient were discussed with the patient's son in detail. No change in the treatment at this time will be necessary after the current bronchoscopic assessment of the airways. KRISSY JIMENES MD CM:PROCNOTE:PROCEDURE NOTE [phone] KRISSY SHERMAN MD
--- NOTE | ~2017-07-29 | PR ---
[place], [place] PROGRESS NOTE NAME: JESSIE VIVEROS UNIT #: [id number] ROOM: 516 DOCTOR: JALIL SHERMAN MD,KRISSY BIRTHDATE: [birth year] DOS: 07/31/2017 SUBJECTIVE: The patient was independently seen and examined today. History was confirmed. Physical examination was performed. All the labs were reviewed. Assessment and management of the patient were personally completed for today's visit. The note done by the medical examiner was approved as well. The patient was stating he is not feeling well, as compared with yesterday; but yesterday he said the same thing that he was not feeling well from the day before. However, he did not have any specific complaints at this time, currently sitting in his room and walking with the use of the walker. The coughing has been noted decreased. Shortness of breath was improving. Oral appetite was described as fair. OBJECTIVE: VITAL SIGNS: Reviewed and was noted essentially normal vital signs. Pulse oxygen saturation on room air 94% saturation. LUNGS: Noted essentially clear except small crackles were heard at the right lung base. Left lung was noted clear. There was no wheezing. ABDOMEN: Soft, nontender. EXTREMITIES: Without any acute edema. CENTRAL NERVOUS SYSTEM: The patient with right hemiparesis. LABORATORY STUDIES: Chest x-ray of the patient that was done this morning was reviewed, shows improvement in the previous areas of patchy infiltration, ground glass opacity in the lower lung with a small infiltration were noted in the left and the right lung base at this time with associated very small pleural fluid was also suspected. IMPRESSION: The patient with acute pneumonia may be viral in origin secondary to acute influenza pneumonia would be considered; a question of a superimposed bacterial infection, not sure about that. PLAN OF TREATMENT: Antibiotic for the patient was already adjusted. The vancomycin was discontinued yesterday. The trough level was still noted elevated 29.4. The Rocephin could be discontinued. The patient will be continued simply on the Zithromax and complete 10 days course of Tamiflu for acute viral pneumonia. Physical therapy for the patient if necessary. Other treatment plan as previously outlined will be continued. [place], [place] PROGRESS NOTE NAME: JESSIE VIVEROS UNIT #: [id number] ROOM: 516 DOCTOR: KRISSY LE MD BIRTHDATE: [birth year] KRISSY JIMENES MD CM:PNTRANS 1229 KRISSY SHERMAN MD 08/01/17 0013 interface
--- NOTE | ~2017-07-29 | PR ---
[place], [place] PROGRESS NOTE NAME: JESSIE VIVEROS UNIT #: [id number] ROOM: 516 DOCTOR: JALIL SHERMAN MD,KRISSY BIRTHDATE: [birth year] DOS: 08/02/2017 SUBJECTIVE: The patient was noted comfortable at this time without any acute distress. He has been still noted over a week. The respiratory symptom has been improving progressively with reduction of the cough. Mild sore throat was reported. There were no symptoms of chest pain or shortness of breath noted at rest. OBJECTIVE: VITAL SIGNS: For the patient, which was recorded shows the blood pressure of 134/57, respiratory rate of 18, heart rate of 57, temperature normal, pulse ox 97% on room air. HEENT: Examination shows no acute change. NECK: Supple. CARDIOVASCULAR: S1 and S2 audible. LUNGS: The patient was noted without any wheeze or crackles. ABDOMEN: Soft and nontender. EXTREMITIES: Without any edema. LABORATORY DATA: BMP this morning of the patient noted as normal. IMPRESSION: 1. Progressive gradual acute influenza A infection clinically and radiologically. 2. Severe debility with elderly status with past history of cerebrovascular accident with small residual right hemiparesis. PLAN OF MANAGEMENT: No changes in the plan of therapy, completion of the antibiotic course for the patient's acute pneumonia. The patient has been considered and assessed possibly for alf facility. No major change and treatment needs to be done today. KRISSY JIMENES MD CM:PNTRANS [phone] KRISSY SHERMAN MD 08/02/171909 interface
--- NOTE | ~2017-07-29 | PR ---
[place], [place] PROGRESS NOTE NAME: JESSIE VIVEROS UNIT #: [id number] ROOM: 516 DOCTOR: JALIL SHERMAN MD,KRISSY BIRTHDATE: [birth year] DOS: 08/01/2017 SUBJECTIVE: He had been comfortably resting in the bed without any coughing, distress at this time. He has not reported any respiratory problem in the last 24 hours. OBJECTIVE: VITAL SIGNS: Normal temperature this morning recorded with a respiratory rate 18, heart rate 52, blood pressure 134/90. The pulse oxygen saturation on room air was 97% saturation. HEENT: Shows no acute change. CARDIOVASCULAR: S1, S2 is audible. LUNGS: Noted clear of any wheezing or crackles. ABDOMEN: Soft, nontender. EXTREMITIES: Without any acute edema. IMPRESSION: 1. Resolving acute basilar pneumonia with acute viral infection. 2. Influenza A infection. 3. Debility related to the current viral illness. PLAN OF TREATMENT: No changes in the plan of therapy. Continue Zithromax, completion of the Tamiflu for 10 days would be recommended. The patient was ordered 5 days of treatment, which will be extended to 10 days of treatment. Other supportive therapy, plan and management. Physical therapy. Possible consideration for home discharge maybe tomorrow would be considered. KRISSY JIMENES MD CM:PNTRANS [phone] KRISSY SHERMAN MD 08/01/171813 interface
--- NOTE | ~2017-07-29 | PR ---
[place], [place] PROGRESS NOTE NAME: JESSIE VIVEROS UNIT #: [id number] ROOM: 516 DOCTOR: JALIL SHERMAN MD,KRISSY BIRTHDATE: [birth year] DOS: 08/05/2017 PULMONARY FOLLOWUP SUBJECTIVE: The patient was independently seen and examined, [id number] encounter, history was confirmed. Physical examination performed. Assessment management was completed. All the available labs were reviewed. The patient has been essentially noted stable at this time, but noted with abdominal pain yesterday as a CT scan of the abdomen and pelvis completed. The patient was noted comfortable, does not have any respiratory complaints at the present time. OBJECTIVE: VITAL SIGNS: For the patient which has been reviewed for the patient noted as normal vital signs. Pulse oxygen saturation of the patient was recorded as 94% on room air. LUNGS: Clear. ABDOMEN: Soft without any tenderness. EXTREMITIES: Without any acute edema. LABORATORY DATA: CT scan of the abdomen and pelvis was described for this patient with multiple small bowel loops with mild distention, possibility of enteritis was suggested. The patient has been essentially doing better from the pulmonary standpoint with resolving acute pneumonia with influenza infection progressively, current abdominal problem, enteritis further investigated by the primary care physician. PLAN OF TREATMENT: No change in treatment at this time will be necessary from the pulmonary standpoint. Continue maximizing medical management. Other medical issues. KRISSY JIMENES MD CM:PNTRANS [phone] KRISSY SHERMAN MD 08/06/17200 interface
--- NOTE | ~2017-07-29 | PR ---
[place], [place] PROGRESS NOTE NAME: JESSIE VIVEROS UNIT #: [id number] ROOM: 516 DOCTOR: JUAN HAMMONDS DO BIRTHDATE: [birth year] DOS: 08/06/2017 SUBJECTIVE: The patient is seen and examined at bedside. The patient continues to have abdominal pain and diarrhea. No respiratory complaints at this time. The patient continues to have improved shortness of breath, cough and sputum production from the time of admission. OBJECTIVE: VITAL SIGNS: Temperature 98.0, pulse is 62, respirations 20, blood pressure 139/62, pulse ox is 98% on room air. GENERAL APPEARANCE: The patient is awake and alert and oriented times 3, in mild to moderate distress. HEENT: Eyes are clear. Nares are patent. Mucous membranes are moist. NECK: Supple, nontender. CARDIOVASCULAR: Regular rate and rhythm, S1 and S2 noted. PULMONARY: Mild expiratory wheezing, no rhonchi, no rales. ABDOMEN: Soft, nontender with positive bowel sounds. EXTREMITIES: Upper and lower extremities show 1+ edema. NEUROLOGIC: Negative for focal deficits. LABORATORY DATA: Blood cultures remain negative. Stool cultures were negative for C. diff. Urine culture negative. Influenza positive. Abdomen, pelvis CT from the shows enteritis. IMPRESSION: 1. Influenza A. 2. Enteritis. 3. Edema. 4. Diarrhea. TREATMENT PLAN: Continue with Tamiflu until 08/08/2017. The patient also may continue on antibiotics, bronchodilators, steroids as prescribed. The patient has mild improvement yesterday from today. No change in the pulmonary care plan. We will continue to follow the patient. The patient is cleared from a pulmonary standpoint for discharge. JUAN NASRA, DO [place], [place] PROGRESS NOTE NAME: JESSIE VIVEROS UNIT #: [id number] ROOM: 516 DOCTOR: NASRAJUAN SHEPARD DO BIRTHDATE: [birth year] KRISSY JIMENES MD CM:MANGO 1223 1349 JUAN HAMMONDS DO 08/06/17 1349 interface
[~2017-07-29 07:53] MED LIST: AMITRIPTYLINE25 MG PO; AMITRIPTYLINE50 MG PO; ASPIRIN81 M1 PO; ATIVAN0.5 MG PO; DAILY VALUE1 EACH PO; DESYREL PO; HYDROCODONE BIT1 T11 PO; LIPITOR40 MG PO; NEURONTIN100 MG PO; NEURONTIN300 MG PO; NEURONTIN400 MG PO; NEURONTIN600 MG PO; NORCO 325 MG-51 TAB PO; NORCO 5-325 TA1 EACH PO; PLAVIX75 M1 PO; PRESERVISION A1 EAC1 PO; PRESERVISION AREDS PO; SKELAXIN800 M1 PO; TRAZODONE50 MG PO; TYLENOL PO; TYLENOL325 M2 PO; VISTARIL25 M2 PO
[2017-07-29] MEDS ORDERED: ELIQUIS5 M1 PO (08:29)
[2017-07-29] MEDS ORDERED: FLORASTOR250 MG PO (08:30)
[2017-07-29] MEDS ORDERED: FERROCITE324 MG PO (08:31)
[2017-07-29] MEDS ORDERED: COLACE100 MG PO (08:31)
[2017-07-29] MEDS ORDERED: POTASSIUM CHLO10 MEQ PO (08:31)
[2017-07-29] MEDS ORDERED: LOPRESSOR50 M1 PO (08:31)
[2017-07-29] MEDS ORDERED: IBU800 MG PO (08:32)
[2017-07-29] MEDS ORDERED: VITAMIN D31000 UNI1 PO (08:32)
[2017-07-29] MEDS ORDERED: MIRAPEX0.5 MG PO (08:32)
[2017-07-29 08:33] LABS: BASO % 0.4 % (0.0-1.0); EOS # 0.1 10*3/uL (0.0-0.4); EOS % 0.7 % (1.0-4.0); HEMATOCRIT 36.7 % (42.0-52.0); HEMOGLOBIN 12.6 g/dl (14.0-18.0); LYMPH # 0.6 10*3/uL (1.3-4.4); LYMPH % 7.7 % (27.0-41.0); MEAN CELL VOLUME 95.6 fl (80.0-94.0); MEAN CORPUSCULAR HGB 32.8 pg (27.0-31.0); MEAN CORPUSCULAR HGB CONC 34.3 g/dl (33.0-37.0); MEAN PLATELET VOLUME 11.4 fl (9.6-12.3); MONO # 0.8 10*3/uL (0.1-1.0); MONO % 10.7 % (3.0-9.0); NEUT # 5.8 10*3/uL (2.3-7.9); NEUT % 80.2 % (47.0-73.0); PLATELET COUNT AUTOMATED 144 10*3/uL (130-400); RED BLOOD COUNT 3.84 10*6/uL (4.50-5.90); WHITE BLOOD COUNT 7.3 10*3/uL (4.8-10.8)
[2017-07-29] MEDS ORDERED: LASIX40 MG PO (08:33)
[2017-07-29] MEDS ORDERED: FLAGYL 375375 MG PO (08:33)
[2017-07-29 08:41] LABS: ACT PARTIAL THROMBO TIME 28.2 SECONDS (20.8-31.5); INTERNATIONAL NORM RATIO 1.2 (2.0-3.5)
[2017-07-29 08:49] LABS: ALBUMIN 3.8 gm/dl (3.1-4.5); CREATININE 1.75 mg/dL (0.70-1.30); POTASSIUM 4.3 mmol/L (3.5-5.1); TOTAL PROTEIN 6.7 gm/dL (6.4-8.2); TROPONIN I 0.031 ng/ml (<0.045)
[2017-07-29 11:58] LABS: BILIRUBIN 1+ (NEGATIVE); BLOOD 3+ (NEGATIVE); CLARITY TURBID (CLEAR); COLOR RED (YELLOW); GLUCOSE NEGATIVE (NEGATIVE); KETONE 1+ (NEGATIVE); NITRITE NEGATIVE (NEGATIVE); PH 7.5 (5.0-9.0)
[2017-07-29 11:59] LABS: LEUKO ESTERASE NEGATIVE (NEGATIVE)
[2017-07-29 12:05] LABS: BACTERIA 1+; RBC TNTC rbc/hpf (0-2); WBC 16-20 wbc/hpf (0-5)
[2017-07-30] VITALS: BP 128/64
[2017-07-30 06:47] LABS: BASO % 0.4 % (0.0-1.0); EOS # 0.2 10*3/uL (0.0-0.4); EOS % 4.1 % (1.0-4.0); HEMATOCRIT 32.9 % (42.0-52.0); HEMOGLOBIN 11.2 g/dl (14.0-18.0); LYMPH # 1.1 10*3/uL (1.3-4.4); LYMPH % 21.7 % (27.0-41.0); MEAN CELL VOLUME 95.9 fl (80.0-94.0); MEAN CORPUSCULAR HGB 32.7 pg (27.0-31.0); MEAN PLATELET VOLUME 11.7 fl (9.6-12.3); MONO # 0.8 10*3/uL (0.1-1.0); MONO % 16.1 % (3.0-9.0); NEUT # 2.8 10*3/uL (2.3-7.9); NEUT % 57.5 % (47.0-73.0); PLATELET COUNT AUTOMATED 125 10*3/uL (130-400); RED BLOOD COUNT 3.43 10*6/uL (4.50-5.90); WHITE BLOOD COUNT 4.8 10*3/uL (4.8-10.8)
[2017-07-30 07:04] LABS: ALBUMIN 3.1 gm/dl (3.1-4.5); ALKALINE PHOSPHATASE 55 U/L (45-117); BUN 22 mg/dl (7-24); CHLORIDE 109 mmol/L (98-107); CHOLESTEROL 95 mg/dL (<200); CREATININE 1.14 mg/dL (0.70-1.30); FREE T4 0.92 ng/dl (0.76-1.46); HDL CHOLESTEROL 51 mg/dl (40-60); LDL CHOLESTEROL 29 mg/dL (9-159); PHOSPHOROUS 2.4 mg/dL (2.5-4.9); POTASSIUM 3.7 mmol/L (3.5-5.1); SGOT/AST 29 IU/L (3-35); SGPT/ALT 29 U/L (12-78); SODIUM 141 mmol/L (136-145); TOTAL PROTEIN 5.4 gm/dL (6.4-8.2); TRIGLYCERIDES 77 mg/dl (<150); VLDL CHOLESTEROL 15 mg/dL (6-40)
[2017-07-30 07:08] LABS: ACT PARTIAL THROMBO TIME 29.7 SECONDS (20.8-31.5); INTERNATIONAL NORM RATIO 1.1 (2.0-3.5)
[2017-07-30 07:37] LABS: VITAMIN D, 25-HYDROXY 22.3 ng/mL (30-100)
[2017-07-30 08:00] VITALS: BP 115/65
[2017-07-30 12:00] VITALS: BP 120/80
[2017-07-30 16:00] VITALS: BP 120/66
[2017-07-30 20:00] VITALS: BP 118/62
[2017-07-31] VITALS: BP 143/68
[2017-07-31 04:58] LABS: BASO % 0.2 % (0.0-1.0); EOS # 0.4 10*3/uL (0.0-0.4); EOS % 7.3 % (1.0-4.0); HEMATOCRIT 31.6 % (42.0-52.0); HEMOGLOBIN 10.6 g/dl (14.0-18.0); LYMPH # 1.3 10*3/uL (1.3-4.4); LYMPH % 26.9 % (27.0-41.0); MEAN CORPUSCULAR HGB 32.2 pg (27.0-31.0); MEAN CORPUSCULAR HGB CONC 33.5 g/dl (33.0-37.0); MEAN PLATELET VOLUME 11.3 fl (9.6-12.3); MONO # 0.5 10*3/uL (0.1-1.0); MONO % 10.5 % (3.0-9.0); NEUT # 2.7 10*3/uL (2.3-7.9); NEUT % 54.9 % (47.0-73.0); PLATELET COUNT AUTOMATED 119 10*3/uL (130-400); RED BLOOD COUNT 3.29 10*6/uL (4.50-5.90); RED CELL DISTRI WIDTH 13.8 % (0-14.5)
[2017-07-31 05:09] LABS: BUN 19 mg/dl (7-24); CHLORIDE 111 mmol/L (98-107); CREATININE 1.07 mg/dL (0.70-1.30); POTASSIUM 3.7 mmol/L (3.5-5.1); SODIUM 144 mmol/L (136-145)
[2017-07-31 08:00] VITALS: BP 136/69
[2017-07-31 12:00] VITALS: BP 138/40
[2017-07-31 16:00] VITALS: BP 138/60
[2017-07-31 18:08] LABS: LEGIONELLA URINARY ANTIGEN Negative (Negative)
[2017-07-31 20:00] VITALS: BP 149/68
[2017-08-01] VITALS: BP 156/74
[2017-08-01 08:00] VITALS: BP 134/90
[2017-08-01 12:00] VITALS: BP 136/88
[2017-08-01 16:00] VITALS: BP 150/67
[2017-08-01 20:00] VITALS: BP 146/65
[2017-08-02] VITALS: BP 140/70
[2017-08-02 06:59] LABS: BASO % 0.4 % (0.0-1.0); EOS # 0.4 10*3/uL (0.0-0.4); EOS % 7.9 % (1.0-4.0); HEMATOCRIT 31.9 % (42.0-52.0); LYMPH # 1.5 10*3/uL (1.3-4.4); LYMPH % 27.8 % (27.0-41.0); MEAN CELL VOLUME 93.5 fl (80.0-94.0); MEAN CORPUSCULAR HGB 32.3 pg (27.0-31.0); MEAN CORPUSCULAR HGB CONC 34.5 g/dl (33.0-37.0); MEAN PLATELET VOLUME 11.8 fl (9.6-12.3); MONO # 0.5 10*3/uL (0.1-1.0); MONO % 9.4 % (3.0-9.0); NEUT % 54.3 % (47.0-73.0); PLATELET COUNT AUTOMATED 122 10*3/uL (130-400); RED BLOOD COUNT 3.41 10*6/uL (4.50-5.90); RED CELL DISTRI WIDTH 13.7 % (0-14.5); WHITE BLOOD COUNT 5.4 10*3/uL (4.8-10.8)
[2017-08-02 07:29] LABS: BUN 10 mg/dl (7-24); CHLORIDE 109 mmol/L (98-107); POTASSIUM 3.5 mmol/L (3.5-5.1); SODIUM 142 mmol/L (136-145)
[2017-08-02 08:00] VITALS: BP 134/57
[2017-08-02 12:00] VITALS: BP 148/71
[2017-08-02 16:00] VITALS: BP 122/64
[2017-08-02 20:00] VITALS: BP 155/70
[2017-08-03] VITALS: BP 145/70
[2017-08-03 07:38] LABS: BASO % 0.4 % (0.0-1.0); EOS # 0.5 10*3/uL (0.0-0.4); EOS % 6.2 % (1.0-4.0); HEMOGLOBIN 11.2 g/dl (14.0-18.0); LYMPH # 1.4 10*3/uL (1.3-4.4); LYMPH % 18.8 % (27.0-41.0); MEAN CELL VOLUME 93.5 fl (80.0-94.0); MEAN CORPUSCULAR HGB 31.7 pg (27.0-31.0); MEAN CORPUSCULAR HGB CONC 33.9 g/dl (33.0-37.0); MEAN PLATELET VOLUME 11.7 fl (9.6-12.3); MONO # 0.6 10*3/uL (0.1-1.0); MONO % 7.6 % (3.0-9.0); NEUT % 66.7 % (47.0-73.0); PLATELET COUNT AUTOMATED 129 10*3/uL (130-400); RED BLOOD COUNT 3.53 10*6/uL (4.50-5.90); RED CELL DISTRI WIDTH 13.7 % (0-14.5); WHITE BLOOD COUNT 7.5 10*3/uL (4.8-10.8)
[2017-08-03 08:00] VITALS: BP 153/64
[2017-08-03 08:02] LABS: BUN 10 mg/dl (7-24); CHLORIDE 110 mmol/L (98-107); PHOSPHOROUS 2.6 mg/dL (2.5-4.9); POTASSIUM 3.5 mmol/L (3.5-5.1); SODIUM 143 mmol/L (136-145)
[2017-08-03 12:00] VITALS: BP 131/85
[2017-08-03 16:00] VITALS: BP 122/55
[2017-08-03 20:00] VITALS: BP 150/56
[2017-08-04] VITALS: BP 138/62
[2017-08-04 08:00] VITALS: BP 132/85
[2017-08-04 12:00] VITALS: BP 130/58
[2017-08-04 16:00] VITALS: BP 143/59
[2017-08-04 20:00] VITALS: BP 140/87
[2017-08-05] VITALS: BP 167/74
[2017-08-05 08:00] VITALS: BP 146/61
[2017-08-05 12:00] VITALS: BP 125/55
[2017-08-05 16:00] VITALS: BP 148/61
[2017-08-05 20:00] VITALS: BP 147/61
[2017-08-06] VITALS: BP 119/49
[2017-08-06 08:00] VITALS: BP 139/62
[2017-08-06 11:17] LABS: ALBUMIN 3.3 gm/dl (3.1-4.5); BILIRUBIN, DIRECT 0.2 mg/dL (0.0-0.2); TOTAL PROTEIN 5.7 gm/dL (6.4-8.2)
[2017-08-06 12:00] VITALS: BP 105/49
[2017-08-06 16:00] VITALS: BP 132/55
[2017-08-06 20:00] VITALS: BP 136/79
[2017-08-07] VITALS (9 sets, daily range): BP systolic 120–151; BP diastolic 65–92
[2017-08-07 07:05] LABS: BASO % 0.3 % (0.0-1.0); EOS # 0.4 10*3/uL (0.0-0.4); EOS % 7.1 % (1.0-4.0); HEMATOCRIT 33.6 % (42.0-52.0); HEMOGLOBIN 11.4 g/dl (14.0-18.0); LYMPH # 1.1 10*3/uL (1.3-4.4); LYMPH % 17.5 % (27.0-41.0); MEAN CELL VOLUME 93.3 fl (80.0-94.0); MEAN CORPUSCULAR HGB 31.7 pg (27.0-31.0); MEAN CORPUSCULAR HGB CONC 33.9 g/dl (33.0-37.0); MEAN PLATELET VOLUME 11.2 fl (9.6-12.3); MONO # 0.7 10*3/uL (0.1-1.0); MONO % 11.1 % (3.0-9.0); NEUT # 3.9 10*3/uL (2.3-7.9); NEUT % 63.7 % (47.0-73.0); PLATELET COUNT AUTOMATED 185 10*3/uL (130-400); RED CELL DISTRI WIDTH 13.7 % (0-14.5); WHITE BLOOD COUNT 6.1 10*3/uL (4.8-10.8)
[2017-08-07 07:47] LABS: ALBUMIN 3.2 gm/dl (3.1-4.5); ALKALINE PHOSPHATASE 66 U/L (45-117); BUN 9 mg/dl (7-24); CHLORIDE 111 mmol/L (98-107); CREATININE 1.16 mg/dL (0.70-1.30); POTASSIUM 3.6 mmol/L (3.5-5.1); SGPT/ALT 43 U/L (12-78); SODIUM 144 mmol/L (136-145); TOTAL PROTEIN 5.7 gm/dL (6.4-8.2)
[2017-08-07 07:48] LABS: SGOT/AST 39 IU/L (3-35)
[2017-08-08] VITALS: BP 130/68
[2017-08-08 08:04] VITALS: BP 144/81
[2017-08-08 12:00] VITALS: BP 145/64
[2017-08-08 16:00] VITALS: BP 160/75
[2017-08-08 20:00] VITALS: BP 135/61
[2017-08-09] VITALS: BP 140/64
[2017-08-09 08:00] VITALS: BP 109/71
[2017-08-09 12:00] VITALS: BP 135/49
[2017-08-09 16:00] VITALS: BP 122/54
[2017-08-09 20:00] VITALS: BP 118/55
[2017-08-10] VITALS: BP 123/74
[2017-08-10 08:00] VITALS: BP 98/56
[2017-08-10 12:00] VITALS: BP 108/68
[2017-08-10 13:19] LABS: BILIRUBIN 2+ (NEGATIVE); BLOOD 3+ (NEGATIVE); CLARITY CLOUDY (CLEAR); COLOR YELLOW (YELLOW); GLUCOSE NEGATIVE (NEGATIVE); KETONE 1+ (NEGATIVE); LEUKO ESTERASE TRACE (NEGATIVE); NITRITE POSITIVE (NEGATIVE); PH 6.5 (5.0-9.0); SPECIFIC GRAVITY 1.025 (1.005-1.030)
[2017-08-10 13:37] VITALS: BP 106/62
[2017-08-10 13:38] LABS: RBC TNTC rbc/hpf (0-2)
[2017-08-10 16:00] VITALS: BP 108/54
[2017-08-10 20:00] VITALS: BP 100/63
[2017-08-11] VITALS: BP 123/73
[2017-08-11 07:02] LABS: BASO # 0.1 10*3/uL (0.0-0.1); BASO % 0.7 % (0.0-1.0); EOS # 0.6 10*3/uL (0.0-0.4); EOS % 8.3 % (1.0-4.0); HEMATOCRIT 35.6 % (42.0-52.0); HEMOGLOBIN 12.1 g/dl (14.0-18.0); LYMPH # 1.3 10*3/uL (1.3-4.4); MEAN CELL VOLUME 94.7 fl (80.0-94.0); MEAN CORPUSCULAR HGB 32.2 pg (27.0-31.0); MEAN PLATELET VOLUME 10.6 fl (9.6-12.3); MONO # 0.7 10*3/uL (0.1-1.0); MONO % 9.2 % (3.0-9.0); NEUT # 4.8 10*3/uL (2.3-7.9); NEUT % 64.5 % (47.0-73.0); PLATELET COUNT AUTOMATED 207 10*3/uL (130-400); RED BLOOD COUNT 3.76 10*6/uL (4.50-5.90); RED CELL DISTRI WIDTH 14.7 % (0-14.5); WHITE BLOOD COUNT 7.4 10*3/uL (4.8-10.8)
[2017-08-11 07:17] LABS: ALBUMIN 3.3 gm/dl (3.1-4.5); ALKALINE PHOSPHATASE 62 U/L (45-117); BUN 8 mg/dl (7-24); CHLORIDE 110 mmol/L (98-107); CREATININE 1.14 mg/dL (0.70-1.30); POTASSIUM 3.2 mmol/L (3.5-5.1); SGOT/AST 49 IU/L (3-35); SGPT/ALT 66 U/L (12-78); SODIUM 142 mmol/L (136-145); TOTAL PROTEIN 6.1 gm/dL (6.4-8.2)
[2017-08-11 08:00] VITALS: BP 123/72
[2017-08-11 12:00] VITALS: BP 131/63
[2017-08-11 16:00] VITALS: BP 109/56
[2017-08-11 20:00] VITALS: BP 126/55
[2017-08-12] VITALS (9 sets, daily range): BP systolic 97–143; BP diastolic 52–78
[2017-08-12 07:05] LABS: BUN 9 mg/dl (7-24); CHLORIDE 112 mmol/L (98-107); CREATININE 1.03 mg/dL (0.70-1.30); PHOSPHOROUS 2.6 mg/dL (2.5-4.9); POTASSIUM 3.9 mmol/L (3.5-5.1); SODIUM 141 mmol/L (136-145)
[2017-08-13] VITALS: BP 125/86
[2017-08-13 08:00] VITALS: BP 140/77
[2017-08-13] MEDS ORDERED: CEFUROXIME AXE250 MG PO (10:52)
[2017-08-13 15:06] LABS: ACID FAST SMEAR Negative (.); ACID FAST SPEC PROCESSING Concentration (.)
[2017-08-13] MEDS ORDERED: PROTONIX40 MG PO (16:52)
== END 2017-08-13 16:20 | disposition other institution (70) | DRG 177 ==
LOC: ED 07:53 → 5E 09:51 → EDHOLD 09:51 → 5E 09:56
PROVIDERS: Emergency Medicine; Family Medicine; Internal Medicine; Internal Medicine Critical Care Medicine; Internal Medicine Gastroenterology; Registered Nurse
DX: J10.08 Influenza due to other identified influenza virus with other specified pneumonia (principal); N17.0 Acute kidney failure with tubular necrosis; J15.6 Pneumonia due to other Gram-negative bacteria; J96.20 Acute and chronic respiratory failure, unspecified whether with hypoxia or hypercapnia; E44.0 Moderate protein-calorie malnutrition; D69.6 Thrombocytopenia, unspecified; G62.9 Polyneuropathy, unspecified; I48.0 Paroxysmal atrial fibrillation; I69.351 Hemiplegia and hemiparesis following cerebral infarction affecting right dominant side; I50.9 Heart failure, unspecified; I11.0 Hypertensive heart disease with heart failure; N28.1 Cyst of kidney, acquired; N30.01 Acute cystitis with hematuria; J10.2 Influenza due to other identified influenza virus with gastrointestinal manifestations; J12.9 Viral pneumonia, unspecified; E55.9 Vitamin D deficiency, unspecified; F40.240 Claustrophobia; J44.0 Chronic obstructive pulmonary disease with (acute) lower respiratory infection; I25.10 Atherosclerotic heart disease of native coronary artery without angina pectoris; E78.5 Hyperlipidemia, unspecified; D53.9 Nutritional anemia, unspecified; M19.90 Unspecified osteoarthritis, unspecified site; K52.9 Noninfective gastroenteritis and colitis, unspecified; Z79.01 Long term (current) use of anticoagulants; Z79.82 Long term (current) use of aspirin; Z79.899 Other long term (current) drug therapy; Z87.81 Personal history of (healed) traumatic fracture; Z91.81 History of falling; Z87.891 Personal history of nicotine dependence; Z82.5 Family history of asthma and other chronic lower respiratory diseases; Z83.3 Family history of diabetes mellitus

== ENCOUNTER → 2017-11-13 | Outpatient (CLI) | payer MEDICARE, OTHER ==
[~2017-11-13] MED LIST changes: +CEFUROXIME AXE250 MG PO; +COLACE100 MG PO; +ELIQUIS5 M1 PO; +FERROCITE324 MG PO; +FLAGYL 375375 MG PO; +FLORASTOR250 MG PO; +IBU800 MG PO; +LASIX40 MG PO; +LOPRESSOR50 M1 PO; +MIRAPEX0.5 MG PO; +POTASSIUM CHLO10 MEQ PO; +PROTONIX40 MG PO; +VITAMIN D31000 UNI1 PO
== END | disposition home or self-care (01) ==
LOC: CARD 11:30
DX: I08.3 Combined rheumatic disorders of mitral, aortic and tricuspid valves (principal)

== ENCOUNTER 2018-02-10 22:42 | Emergency (ER) | payer MEDICARE, OTHER ==
[~2018-02-10] VITALS: Ht 185.4 cm; Wt 90.7 kg
[2018-02-10 23:22] LABS: BASO % 0.4 % (0.0-1.0); EOS # 0.3 10*3/uL (0.0-0.4); EOS % 4.2 % (1.0-4.0); HEMATOCRIT 40.6 % (42.0-52.0); HEMOGLOBIN 13.7 g/dl (14.0-18.0); LYMPH # 1.8 10*3/uL (1.3-4.4); LYMPH % 23.4 % (27.0-41.0); MEAN CELL VOLUME 94.6 fl (80.0-94.0); MEAN CORPUSCULAR HGB 31.9 pg (27.0-31.0); MEAN CORPUSCULAR HGB CONC 33.7 g/dl (33.0-37.0); MEAN PLATELET VOLUME 10.7 fl (9.6-12.3); MONO # 0.6 10*3/uL (0.1-1.0); MONO % 8.3 % (3.0-9.0); NEUT # 4.8 10*3/uL (2.3-7.9); NEUT % 63.6 % (47.0-73.0); PLATELET COUNT AUTOMATED 174 10*3/uL (130-400); RED BLOOD COUNT 4.29 10*6/uL (4.50-5.90); RED CELL DISTRI WIDTH 14.3 % (0-14.5); WHITE BLOOD COUNT 7.6 10*3/uL (4.8-10.8)
[2018-02-10 23:36] LABS: ALBUMIN 3.8 gm/dl (3.1-4.5); ALKALINE PHOSPHATASE 103 U/L (45-117); BUN 20 mg/dl (7-24); CHLORIDE 105 mmol/L (98-107); CREATININE 1.31 mg/dL (0.70-1.30); LIPASE 285 U/L (73-393); POTASSIUM 3.8 mmol/L (3.5-5.1); SGOT/AST 17 IU/L (3-35); SGPT/ALT 25 U/L (12-78); SODIUM 141 mmol/L (136-145)
[2018-02-11 02:32] LABS: BILIRUBIN 1+ (NEGATIVE); BLOOD 3+ (NEGATIVE); CLARITY CLOUDY (CLEAR); COLOR YELLOW (YELLOW); GLUCOSE NEGATIVE (NEGATIVE); KETONE NEGATIVE (NEGATIVE); LEUKO ESTERASE NEGATIVE (NEGATIVE); NITRITE NEGATIVE (NEGATIVE)
[2018-02-11 02:43] LABS: RBC TNTC rbc/hpf (0-2)
[2018-02-11] MEDS ORDERED: FLOMAX0.4 MG PO (02:56)
== END 2018-02-11 03:38 | disposition home or self-care (01) ==
LOC: ED 22:42
PROVIDERS: Physician Assistant
DX: D68.9 Coagulation defect, unspecified (principal); R31.9 Hematuria, unspecified; I25.10 Atherosclerotic heart disease of native coronary artery without angina pectoris; J44.9 Chronic obstructive pulmonary disease, unspecified; I50.9 Heart failure, unspecified; E78.5 Hyperlipidemia, unspecified; M19.90 Unspecified osteoarthritis, unspecified site; G62.9 Polyneuropathy, unspecified; I48.0 Paroxysmal atrial fibrillation; Z79.899 Other long term (current) drug therapy; Z79.82 Long term (current) use of aspirin; Z87.891 Personal history of nicotine dependence; Z86.73 Personal history of transient ischemic attack (TIA), and cerebral infarction without residual deficits

== ENCOUNTER 2018-07-29 20:36 | Inpatient (IN) | payer MEDICARE, OTHER ==
[~2018-07-29] VITALS: Ht 185.4 cm; Wt 100.9 kg
--- NOTE | ~2018-07-29 | EKG ---
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
--- NOTE | ~2018-07-29 | EKG ---
[place], [place] ELECTROCARDIOGRAM REPORT NAME: JESSIE VIVEROS UNIT #: [id number] ROOM: 528 DOCTOR: CHRIS DRAFT REPORT BIRTHDATE: [birth year] [facility] Test Date: 2018-07-30 Test Time: 02:30:51 Pat Name: JESSIE VIVEROS Department: Room: 528 Gender: M [employer] Operator: Trini Arreaga : 1940 Requested By: YOSI PRIETO Order Number: [id number] Reading MD: Betsy Sinha MD Measurements Intervals [place] Rate: 83 P: 44 [place]: 161 QRS: -25 QRSD: 91 T: 37 QT: 343 QTc: 403 Interpretive Statements Sinus rhythm Borderline left axis deviation Abnormal R-wave progression, early transition Electronically Signed On 07-30-2018 16:01:15 PST by Betsy Sinha MD CM:EKGRPT:ELECTROCARDIOGRAM REPORT [id number] YOSI MAYA DRAFT REPORT YOSI PRIETO DO
--- NOTE | ~2018-07-29 | PR ---
[place], [place] PROGRESS NOTE NAME: JESSIE VIVEROS [facility] #: [id number] UNIT #: [id number] ROOM: 528 DOCTOR: SAIGE WHEELER MD BIRTHDATE: [birth year] DOS: 07/31/2018 CARDIOLOGY PROGRESS NOTE SUBJECTIVE: The patient was seen at his bedside today, 07/31/2018, for followup of atypical chest pain. He is a 77-year-old man who tells me he has had no previous history of heart disease. He was admitted to the hospital with nausea and vomiting. En route to the Emergency Room, he found that this was associated with some chest discomfort as well. In the Emergency Room, he had no acute EKG changes and cardiac biomarkers have been measurable but not elevated. It was felt that his symptoms were more related to an acute gastroenteritis. A stress test had been considered, but was delayed because of ongoing nausea and vomiting. The patient is feeling better today. He feels that he probably will be discharged to home soon. He still does feel occasionally queasy, but denies any chest or abdominal pain at this time. The patient tells me that he was recently documented to have bladder cancer and is undergoing instillation of chemotherapy in [place]. His next course of therapy is scheduled for 08/06/2018. PHYSICAL EXAMINATION: VITAL SIGNS: Today, pulse is 61 and regular, blood pressure is 138/64, he is afebrile. He weighs 100.9 kg and has a body mass index of 29.4. HEENT: Normocephalic and atraumatic. Extraocular muscles are intact. Sclerae are clear. NECK: Supple. He has no jugular distention. Carotids are full. LUNGS: Respirations are unlabored. Chest is clear to auscultation and percussion. HEART: Has a regular rhythm. He has a fourth heart sound, but no third heart sound. The second heart sound is well preserved. He has a grade 3/6 late peaking systolic ejection murmur along the left sternal border. There are no diastolic murmurs. ABDOMEN: Soft and normally active. EXTREMITIES: Showed no edema. IMPRESSION: 1. Atypical chest pain. The patient has no evidence for an acute coronary syndrome. 2. Bicuspid aortic valve with moderate aortic stenosis. 3. History of paroxysmal atrial fibrillation, currently in sinus rhythm. The patient is on Eliquis for stroke prophylaxis. 4. Probable acute gastroenteritis. 5. Bladder cancer, actively being treated at this time. PLAN: Once the patient's gastroenteritis has resolved, we can plan on a pharmacologic stress test either as an inpatient or as an outpatient. I did reassure the patient that our stress test would not interfere with his bladder cancer therapies. [place], [place] PROGRESS NOTE NAME: JESSIE VIVEROS UNIT #: [id number] ROOM: 528 DOCTOR: LIAM OROSCO,SAIGE BIRTHDATE: [birth year] I thank the hospitalist physicians for asking our advice regarding his care. SAIGE WHEELER MD CM:PNTRANS [phone] SAIGE WHEELER MD 08/01/18 1321 interface
--- NOTE | ~2018-07-29 | EKG ---
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
--- NOTE | ~2018-07-29 | PR ---
[place], [place] PROGRESS NOTE NAME: JESSIE VIVEROS UNIT #: [id number] ROOM: 528 DOCTOR: SAIGE WHEELER MD BIRTHDATE: [birth year] DOS: 08/01/2018 SUBJECTIVE: The patient was seen at his bedside today 08/01/2018 for followup of atypical chest pain. He has no previous history of heart disease and was admitted to the hospital with acute gastroenteritis symptoms. This was associated with some chest discomfort, he has had no acute EKG changes and cardiac biomarkers have been measurable but not elevated. Initially, he was too ill to undergo further cardiac testing, but he is now feeling well and therefore, we will plan on a pharmacologic stress test in the morning. PHYSICAL EXAMINATION: VITAL SIGNS: His pulse is 53 and regular, blood pressure is 131/56. He is afebrile. NECK: Supple. He has no jugular distention. Carotids are full. LUNGS: Respirations are unlabored. His chest is clear to auscultation and percussion. HEART: Has a regular rhythm with a fourth heart sound, but no third heart sound. The second heart sound is well preserved. He has a grade 3/6 late peaking systolic ejection murmur along the left sternal border, but no diastolic murmur. ABDOMEN: Soft and normally active. EXTREMITIES: Showed no edema. IMPRESSION: 1. Atypical chest pain. The patient has no evidence for an acute coronary syndrome. 2. Bicuspid aortic valve with moderate aortic stenosis. This appears to be asymptomatic at present. 3. History of paroxysmal atrial fibrillation, currently in sinus rhythm. The patient is on Eliquis for stroke prophylaxis. 4. Acute gastroenteritis. 5. Bladder cancer being actively treated at this time. PLAN: We will proceed with a pharmacologic stress test on 08/02/2018 with further recommendations to follow. I thank the hospitalist physicians for asking our advice regarding his care. [place], [place] PROGRESS NOTE NAME: JESSIE VIVEROS UNIT #: [id number] ROOM: 528 DOCTOR: SAIGE WHEELER MD BIRTHDATE: [birth year] SAIGE WHEELER MD CM:PNTRANS [phone] SAIGE WHEELER MD 08/02/18 0941 interface
--- NOTE | ~2018-07-29 | PR ---
[place], [place] PROGRESS NOTE NAME: [facility]IVEROS [id number] UNIT #: [id number] ROOM: 528 DOCTOR: SAIGE WHEELER MD BIRTHDATE: [birth year] DOS: 08/02/2018 SUBJECTIVE: The patient was seen at his bedside today 08/02/2018 for followup of atypical chest pain. He presented to the hospital on 07/29/2018 with intractable nausea and vomiting. He experienced some chest pain while vomiting and therefore cardiac evaluation was requested. He ruled out for an acute myocardial infarction. Several other family members had similar symptoms, so this likely represented a viral gastroenteritis. He feels well today and therefore we did attempt a pharmacologic stress test. Unfortunately, he could not tolerate the imaging study. He states that he has had problems with claustrophobia while having CAT scans, MRI, etc. in the past and had similar problems with today's study. He can only lie under the camera for about 3 minutes before he demanded to be taken out. Imaging takes at least 15 minutes. PHYSICAL EXAMINATION: VITAL SIGNS: Today, his pulse is 57 and regular, blood pressure 152/67. He is afebrile. NECK: Supple. He has no jugular distention. Carotids are full. LUNGS: Respirations are unlabored. His chest is clear to auscultation and percussion. He has no presacral edema or chest wall tenderness. HEART: Has a regular rhythm. He has an S4 gallop and no S3. He has a grade 3/6 late peaking systolic ejection murmur along the left sternal border. There are no diastolic murmurs. The second heart sound is well preserved. ABDOMEN: Benign. EXTREMITIES: Showed no edema. The patient and I had a long discussion about further options for testing. From my perspective, he has never had problems with coronary artery disease before and his symptoms were almost certainly related to an acute gastroenteritis. I do not see any strong indication for further testing at this time and particularly think that the risk of a dobutamine stress echo outweighs the potential for benefits currently. He does have a bicuspid aortic valve and we will need to follow that in the office. I did tell him that if he develops chest pain or syncopal episodes that we want to see him right away, otherwise we will follow up with him in the office in a couple of months. I thank the hospitalist physicians for asking our advice regarding his care. [place], [place] PROGRESS NOTE NAME: JESSIE VIVEROS UNIT #: [id number] ROOM: 528 DOCTOR: SAIGE WHEELER MD BIRTHDATE: [birth year] SAIGE WHEELER MD CM:PNTRANS [phone] SAIGE WHEELER MD 08/03/18 0618 interface
[~2018-07-29 20:36] MED LIST changes: +FLOMAX0.4 MG PO
[2018-07-29 20:43] VITALS: BP 151/81
[2018-07-29 21:07] LABS: BASO % 0.3 % (0.0-1.0); EOS # 0.1 10*3/uL (0.0-0.4); HEMOGLOBIN 15.7 g/dl (14.0-18.0); LYMPH # 0.6 10*3/uL (1.3-4.4); LYMPH % 5.3 % (27.0-41.0); MEAN CELL VOLUME 95.5 fl (80.0-94.0); MEAN CORPUSCULAR HGB 31.9 pg (27.0-31.0); MEAN CORPUSCULAR HGB CONC 33.4 g/dl (33.0-37.0); MONO # 0.5 10*3/uL (0.1-1.0); MONO % 4.7 % (3.0-9.0); NEUT # 9.7 10*3/uL (2.3-7.9); NEUT % 88.5 % (47.0-73.0); PLATELET COUNT AUTOMATED 203 10*3/uL (130-400); RED BLOOD COUNT 4.92 10*6/uL (4.50-5.90); RED CELL DISTRI WIDTH 13.7 % (0-14.5)
[2018-07-29] MEDS ORDERED: FERROUS SULFAT325 MG PO (21:08)
[2018-07-29] MEDS ORDERED: COLACE100 MG PO (21:08)
[2018-07-29] MEDS ORDERED: FLOMAX0.4 MG PO (21:12)
[2018-07-29] MEDS ORDERED: MIRTAZAPINE15 M2 PO (21:13)
[2018-07-29 21:15] VITALS: BP 123/53
[2018-07-29 21:18] LABS: ACT PARTIAL THROMBO TIME 25.4 SECONDS (20.8-31.5)
[2018-07-29 21:24] LABS: ALBUMIN 4.2 gm/dl (3.1-4.5); ALKALINE PHOSPHATASE 111 U/L (45-117); BUN 25 mg/dl (7-24); CHLORIDE 104 mmol/L (98-107); CREATININE 1.35 mg/dL (0.70-1.30); POTASSIUM 4.3 mmol/L (3.5-5.1); SGOT/AST 25 IU/L (3-35); SGPT/ALT 35 U/L (12-78); SODIUM 140 mmol/L (136-145); TOTAL PROTEIN 7.5 gm/dL (6.4-8.2)
[2018-07-29 21:25] LABS: TROPONIN I 0.016 ng/ml (<0.045)
[2018-07-29 21:44] VITALS: BP 124/61
[2018-07-29 22:40] VITALS: BP 135/62
[2018-07-29 22:45] VITALS: BP 135/62
[2018-07-30] VITALS: BP 121/57
[2018-07-30 03:07] LABS: HEMATOCRIT 41.7 % (42.0-52.0); HEMOGLOBIN 14.1 g/dl (14.0-18.0); MEAN CORPUSCULAR HGB 32.1 pg (27.0-31.0); MEAN CORPUSCULAR HGB CONC 33.8 g/dl (33.0-37.0); MEAN PLATELET VOLUME 10.8 fl (9.6-12.3); PLATELET COUNT AUTOMATED 184 10*3/uL (130-400); RED BLOOD COUNT 4.39 10*6/uL (4.50-5.90); RED CELL DISTRI WIDTH 13.6 % (0-14.5); WHITE BLOOD COUNT 7.8 10*3/uL (4.8-10.8)
[2018-07-30 03:22] LABS: INTERNATIONAL NORM RATIO 1.1 (2.0-3.5)
[2018-07-30 03:24] LABS: ALBUMIN 3.5 gm/dl (3.1-4.5); ALKALINE PHOSPHATASE 88 U/L (45-117); BUN 25 mg/dl (7-24); CHLORIDE 106 mmol/L (98-107); CHOLESTEROL 129 mg/dL (<200); CREATININE 1.37 mg/dL (0.70-1.30); HDL CHOLESTEROL 58 mg/dl (40-60); LDL CHOLESTEROL 51 mg/dL (9-159); PHOSPHOROUS 2.8 mg/dL (2.5-4.9); POTASSIUM 4.2 mmol/L (3.5-5.1); SGOT/AST 25 IU/L (3-35); SGPT/ALT 29 U/L (12-78); SODIUM 140 mmol/L (136-145); TOTAL PROTEIN 6.6 gm/dL (6.4-8.2); TRIGLYCERIDES 100 mg/dl (<150); VLDL CHOLESTEROL 20 mg/dL (6-40)
[2018-07-30 03:36] LABS: PLATELET SUFFICIENCY NORMAL (NORMAL); TOTAL CELLS COUNTED 100 #CELLS
[2018-07-30 07:00] LABS: VITAMIN D, 25-HYDROXY 32.8 ng/mL (30-100)
[2018-07-30 12:00] VITALS: BP 104/59
[2018-07-30 16:00] VITALS: BP 106/77
[2018-07-30 20:00] VITALS: BP 130/61
[2018-07-31] VITALS: BP 101/52
[2018-07-31 06:33] LABS: BASO % 0.5 % (0.0-1.0); EOS # 0.3 10*3/uL (0.0-0.4); EOS % 4.5 % (1.0-4.0); HEMATOCRIT 40.9 % (42.0-52.0); HEMOGLOBIN 13.1 g/dl (14.0-18.0); LYMPH # 1.2 10*3/uL (1.3-4.4); LYMPH % 18.9 % (27.0-41.0); MEAN CORPUSCULAR HGB 31.5 pg (27.0-31.0); MEAN PLATELET VOLUME 10.8 fl (9.6-12.3); MONO # 0.6 10*3/uL (0.1-1.0); MONO % 8.8 % (3.0-9.0); NEUT # 4.3 10*3/uL (2.3-7.9); PLATELET COUNT AUTOMATED 157 10*3/uL (130-400); RED BLOOD COUNT 4.16 10*6/uL (4.50-5.90); RED CELL DISTRI WIDTH 14.1 % (0-14.5); WHITE BLOOD COUNT 6.4 10*3/uL (4.8-10.8)
[2018-07-31 06:36] LABS: MEAN CELL VOLUME 98.3 fl (80.0-94.0)
[2018-07-31 06:44] LABS: ALBUMIN 3.1 gm/dl (3.1-4.5); BUN 20 mg/dl (7-24); CHLORIDE 106 mmol/L (98-107); CREATININE 1.24 mg/dL (0.70-1.30); POTASSIUM 3.9 mmol/L (3.5-5.1); SGOT/AST 28 IU/L (3-35); SGPT/ALT 28 U/L (12-78); SODIUM 139 mmol/L (136-145)
[2018-07-31 06:45] LABS: ALKALINE PHOSPHATASE 85 U/L (45-117); TOTAL PROTEIN 6.2 gm/dL (6.4-8.2)
[2018-07-31 08:00] VITALS: BP 138/64
[2018-07-31 12:00] VITALS: BP 118/60
[2018-07-31 16:00] VITALS: BP 108/52
[2018-07-31 20:00] VITALS: BP 132/55
[2018-08-01] VITALS: BP 135/79
[2018-08-01 06:11] LABS: BASO % 0.4 % (0.0-1.0); EOS # 0.4 10*3/uL (0.0-0.4); EOS % 8.1 % (1.0-4.0); HEMATOCRIT 36.4 % (42.0-52.0); LYMPH # 1.4 10*3/uL (1.3-4.4); LYMPH % 27.4 % (27.0-41.0); MEAN CELL VOLUME 97.1 fl (80.0-94.0); MEAN PLATELET VOLUME 10.3 fl (9.6-12.3); MONO # 0.7 10*3/uL (0.1-1.0); MONO % 13.1 % (3.0-9.0); NEUT # 2.5 10*3/uL (2.3-7.9); NEUT % 50.8 % (47.0-73.0); PLATELET COUNT AUTOMATED 139 10*3/uL (130-400); RED BLOOD COUNT 3.75 10*6/uL (4.50-5.90); RED CELL DISTRI WIDTH 13.8 % (0-14.5)
[2018-08-01 06:42] LABS: BUN 15 mg/dl (7-24); CHLORIDE 109 mmol/L (98-107); CREATININE 1.16 mg/dL (0.70-1.30); SODIUM 143 mmol/L (136-145)
[2018-08-01 08:00] VITALS: BP 101/48
[2018-08-01 12:00] VITALS: BP 105/46
[2018-08-01 16:00] VITALS: BP 131/56
[2018-08-01 20:00] VITALS: BP 152/62
[2018-08-02] VITALS: BP 149/71
[2018-08-02 08:00] VITALS: BP 148/78
[2018-08-02 12:00] VITALS: BP 152/67
[2018-08-02] MEDS ORDERED: ZOFRAN4 MG PO (15:09)
== END 2018-08-02 17:03 | disposition home or self-care (01) | DRG 391 ==
LOC: ED 20:36 → EDHOLD 22:07 → 5E 22:07
PROVIDERS: Internal Medicine; Student in an Organized Health Care Education/Training Program; ADMIT Internal Medicine
DX: K52.9 Noninfective gastroenteritis and colitis, unspecified (principal); N17.0 Acute kidney failure with tubular necrosis; D68.59 Other primary thrombophilia; I50.32 Chronic diastolic (congestive) heart failure; K21.9 Gastro-esophageal reflux disease without esophagitis; J44.9 Chronic obstructive pulmonary disease, unspecified; I48.0 Paroxysmal atrial fibrillation; E78.5 Hyperlipidemia, unspecified; I25.10 Atherosclerotic heart disease of native coronary artery without angina pectoris; C67.9 Malignant neoplasm of bladder, unspecified; Z66 Do not resuscitate; Z51.5 Encounter for palliative care; I08.0 Rheumatic disorders of both mitral and aortic valves; G62.9 Polyneuropathy, unspecified; E55.9 Vitamin D deficiency, unspecified; E66.3 Overweight; D72.825 Bandemia; M19.90 Unspecified osteoarthritis, unspecified site; N40.0 Benign prostatic hyperplasia without lower urinary tract symptoms; D75.89 Other specified diseases of blood and blood-forming organs; E80.6 Other disorders of bilirubin metabolism; B34.9 Viral infection, unspecified; R73.9 Hyperglycemia, unspecified; Z86.73 Personal history of transient ischemic attack (TIA), and cerebral infarction without residual deficits; Z87.01 Personal history of pneumonia (recurrent); Z87.440 Personal history of urinary (tract) infections; Z87.891 Personal history of nicotine dependence; Z83.3 Family history of diabetes mellitus; Z82.5 Family history of asthma and other chronic lower respiratory diseases; Z79.899 Other long term (current) drug therapy; Z79.82 Long term (current) use of aspirin; Z68.29 Body mass index [BMI] 29.0-29.9, adult

== ENCOUNTER → 2019-06-17 | Outpatient (CLI) | payer MEDICARE, OTHER ==
[~2019-06-17] MED LIST changes: +FERROUS SULFAT325 MG PO; +MIRTAZAPINE15 M2 PO; +ZOFRAN4 MG PO
== END | disposition home or self-care (01) ==
LOC: CARD 10:30
DX: I08.3 Combined rheumatic disorders of mitral, aortic and tricuspid valves (principal)

== ENCOUNTER → 2019-09-22 | Outpatient (CLI) | payer MEDICARE, OTHER | END | disposition home or self-care (01) | LOC: US 17:00 | DX: I65.23 Occlusion and stenosis of bilateral carotid arteries (principal); R42 Dizziness and giddiness; Z86.73 Personal history of transient ischemic attack (TIA), and cerebral infarction without residual deficits ==

== ENCOUNTER 2020-05-29 20:08 | Inpatient (IN) | payer MEDICARE, OTHER ==
[~2020-05-29] VITALS: Wt 98.2 kg
[2020-05-29 20:10] VITALS: BP 103/60
[2020-05-29 20:35] LABS: BASO % 0.2 % (0.0-1.0); EOS % 0.3 % (1.0-4.0); HEMATOCRIT 43.4 % (42.0-52.0); MEAN CELL VOLUME 91.8 fl (80.0-94.0); MEAN CORPUSCULAR HGB 31.1 pg (27.0-31.0); MEAN CORPUSCULAR HGB CONC 33.9 g/dl (33.0-37.0); MEAN PLATELET VOLUME 10.8 fl (9.6-12.3); MONO # 0.4 10*3/uL (0.1-1.0); MONO % 7.3 % (3.0-9.0); NEUT # 4.3 10*3/uL (2.3-7.9); NEUT % 75.2 % (47.0-73.0); PLATELET COUNT AUTOMATED 142 10*3/uL (130-400); RED BLOOD COUNT 4.73 10*6/uL (4.50-5.90); RED CELL DISTRI WIDTH 13.4 % (0-14.5); WHITE BLOOD COUNT 5.7 10*3/uL (4.8-10.8)
[2020-05-29 20:57] LABS: ALBUMIN 3.6 gm/dl (3.1-4.5); ALKALINE PHOSPHATASE 106 U/L (45-117); BUN 15 mg/dl (7-24); CHLORIDE 104 mmol/L (98-107); CREATININE 1.19 mg/dL (0.70-1.30); POTASSIUM 3.6 mmol/L (3.5-5.1); SGOT/AST 30 IU/L (3-35); SGPT/ALT 35 U/L (12-78); SODIUM 136 mmol/L (136-145); TOTAL PROTEIN 6.7 gm/dL (6.4-8.2); TROPONIN I 0.029 ng/ml (<0.045)
[2020-05-29 21:12] VITALS: BP 79/46
[2020-05-29 21:16] LABS: ACT PARTIAL THROMBO TIME 36.8 SECONDS (20.0-32.1); INTERNATIONAL NORM RATIO 1.1 (2.0-3.5)
[2020-05-29 21:55] VITALS: BP 94/55
[2020-05-29 22:00] VITALS: BP 93/55
--- NOTE | 2020-05-29 22:00 | NUR ---
Cardiezm drip stopped at this time.
[2020-05-29 22:33] VITALS: BP 88/64
[2020-05-29 23:45] LABS: BILIRUBIN Negative (Negative); BLOOD Trace-Lysed (Negative); CLARITY Clear (Clear); COLOR Yellow (Yellow); GLUCOSE Negative (Negative); KETONE 1+ (Negative); LEUKO ESTERASE Negative (Negative); NITRITE Negative (Negative); PH 5.5 (4.5-8.0)
[2020-05-30] VITALS (12 sets, daily range): BP systolic 81–144; BP diastolic 50–89
[2020-05-30 00:08] LABS: RBC 16-20 rbc/hpf (0-2)
--- NOTE | 2020-05-30 00:22 | NUR ---
PT LAYING ON COT AT THIS TIME. DENIES NEEDS AT THIS TIME. CALL LIGHT WITH IN REACH. WILL CONTINUE TO MONITOR.
--- NOTE | 2020-05-30 01:02 | NUR ---
PT STATES HE NEEDS TO URINATE. UPON SITTING PT UP AT BEDSIDE PT WAS UNSUCCESSFUL AT THIS TIME. PT REPOSITIONED AND COVERED WITH WARM BLANKET. DENIES ALL OTHER NEEDS AT THIS TIME.
--- NOTE | 2020-05-30 01:07 | NUR ---
THIS RN INCREASING CARDIZEM DRIP FROM 5 MG UP TO 10 MG PER HOUR, D/T HR OF 160.
--- NOTE | 2020-05-30 02:58 | NUR ---
Cardiezm drip increased to 11 mg an hour at this time and pt offered water.
--- NOTE | 2020-05-30 03:14 | NUR ---
CONTACTED [facility] IN REGARD TO PT CURRENT HR PER DR PEREZ. WILL CALL BACK.
--- NOTE | 2020-05-30 03:20 | NUR ---
DR SANTORO GAVE VERBAL ORDERS FOR DIGOXEN 0.25 MG IV NOW, METOPROLOL 25 MG PO NOW, AND INCREASE CARDIZEM TO 12.5 MG. THIS RN TO CARRY OUT THESE ORDERS.
--- NOTE | 2020-05-30 03:46 | NUR ---
DR PEREZ AWARE OF ORDERS SENT DOWN BY CARDIO. REQUEST FOR MAITENANCE FLUIDS MADE AT THIS TIME.
--- NOTE | 2020-05-30 04:34 | NUR ---
CARDIZEM DECREASED AT THIS TIME TO 7 D/T BP OF 84/56. THIS RN WILL CONTINUE TO MONITOR.
--- NOTE | 2020-05-30 04:39 | NUR ---
CARDIZEM CURRENTLY AT 5 MG/HR. THIS RN WILL CONTINUE TO MONITOR HR AND BP.
--- NOTE | 2020-05-30 04:56 | NUR ---
DR PEREZ CONTACTED. ROCK PUT ON HOLD D/T CURRENT VS.
--- NOTE | 2020-05-30 05:59 | NUR ---
PT SAT UP IN BED. TV ON. PT GIVEN WATER AT THIS TIME. VSS. WILL CONTINUE TO MONITOR.
[2020-05-30 07:17] LABS: BASO % 0.3 % (0.0-1.0); EOS % 0.4 % (1.0-4.0); HEMATOCRIT 44.3 % (42.0-52.0); LYMPH # 1.4 10*3/uL (1.3-4.4); LYMPH % 19.8 % (27.0-41.0); MEAN CELL VOLUME 93.3 fl (80.0-94.0); MEAN CORPUSCULAR HGB 30.9 pg (27.0-31.0); MEAN CORPUSCULAR HGB CONC 33.2 g/dl (33.0-37.0); MEAN PLATELET VOLUME 10.7 fl (9.6-12.3); MONO # 0.6 10*3/uL (0.1-1.0); MONO % 7.9 % (3.0-9.0); NEUT % 71.5 % (47.0-73.0); PLATELET COUNT AUTOMATED 152 10*3/uL (130-400); RED BLOOD COUNT 4.75 10*6/uL (4.50-5.90); RED CELL DISTRI WIDTH 13.7 % (0-14.5)
[2020-05-30 07:36] LABS: BUN 17 mg/dl (7-24); CHLORIDE 105 mmol/L (98-107); CREATININE 1.31 mg/dL (0.70-1.30); POTASSIUM 3.7 mmol/L (3.5-5.1); SODIUM 138 mmol/L (136-145)
[2020-05-30 07:40] LABS: CHOLESTEROL 104 mg/dL (<200); FREE T4 1.08 ng/dl (0.76-1.46); HDL CHOLESTEROL 42 mg/dl (40-60); LDL CHOLESTEROL 39 mg/dL (9-159); TRIGLYCERIDES 114 mg/dl (<150); VLDL CHOLESTEROL 23 mg/dL (6-40)
[2020-05-30 07:47] LABS: THYROID STIM HORMONE (HS) 0.657 uIU/ml (0.358-4.75)
[2020-05-30 08:42] LABS: VITAMIN D, 25-HYDROXY 46.3 ng/mL (30-100)
--- NOTE | 2020-05-30 14:56 | NUR ---
MED REC UPDATED VIA CLAIM HISTORY. NOTIFIED.
--- NOTE | 2020-05-30 22:58 | NUR ---
PT UNDRESSED AND LAYING CROOKED IN BED AT THIS TIME. PT RECLOTHED AND MADE MORE COMFORTABLE AT THIS TIME. DENIES ALL OTHER NEEDS AT THIS TIME. WILL CONTINUE TO MONITOR.
[2020-05-31] VITALS (8 sets, daily range): BP systolic 100–146; BP diastolic 43–88
--- NOTE | 2020-05-31 | NUR ---
PT STATES THE NEEDS TO URINATE. THIS RN HELPED PT TO TRY TO USE THE URINAL AT THIS TIME. PT STATES HE IS HAVING A HARD TIME URINATING. THIS RN TO BLADDER SCAN AT THIS TIME.
--- NOTE | 2020-05-31 00:33 | NUR ---
PT RESTLESS AND AGITATED. PRN PAIN MEDICATION PROVIDED. WILL REASSESS
--- NOTE | 2020-05-31 00:38 | NUR ---
PT HR RANGES IN THE 90'S CARDIZEM TO REMAIN 5MG/HR
--- NOTE | 2020-05-31 00:39 | NUR ---
THIS RN CONTACTED DR PEREZ AT THIS TIME ABOUT BLADDER SCAN RESULTS. VO GIVEN TO PLACE SIMMONS AT THIS TIME TO ASSIST PT IN URINATION. WILL CONTINUE TO MONITOR.
--- NOTE | 2020-05-31 01:43 | NUR ---
SIMMONS INSERTED AT THIS TIME WITH OUTPUT OF 400. PT REPOSITIONED FOR COMFORT. IV FLUIDS STARTED. PT CALM AT THIS TIME. SAFETY PRECAUTIONS INTACT. CALL LIGHT WITH IN REACH. WILL CONTINUE TO MONITOR.
--- NOTE | 2020-05-31 04:20 | NUR ---
PT LAYING WITH EYES CLOSED AT THIS TIME. SAFETY PRECAUTIONS INTACT. WILL CONTINUE TO MONITOR.
--- NOTE | 2020-05-31 05:18 | NUR ---
PT IN OBVIOUS DISTRESS AND IS UNABLE TO GET COMFORTABLE W/ NON-PHARMACOLOGICAL MEASURES. ORN IV PAIN MEDICATION PROVIDED. WILL REASSESS.
[2020-05-31 07:30] LABS: ALBUMIN 3.1 gm/dl (3.1-4.5); POTASSIUM 3.6 mmol/L (3.5-5.1)
[2020-05-31 07:34] LABS: CREATININE 1.49 mg/dL (0.70-1.30); TOTAL PROTEIN 5.8 gm/dL (6.4-8.2)
--- NOTE | 2020-05-31 10:15 | NUR ---
DR HAMMOND AWARE OF CRITICAL TROPONIN LEVEL OF 0.855.
[2020-05-31 10:21] LABS: ABG BASE EXCESS -3.2 mmol/L (-2.0-2.0); ARTERIAL BLOOD GAS PH 7.495 (7.35-7.45)
--- NOTE | 2020-05-31 12:02 | NUR ---
NOTIED DR SLADE THAT PATIENT'S FAMILY IS STATING THAT THE PATIENT'S BEHAVIOR IS NOT NORMAL FOR HIM AND THERE IS SOMETHING WRONG. HE STATED HE WILL NOTIFY DR ALEXANDER'S TEAM.
--- NOTE | 2020-05-31 12:05 | NUR ---
DR CUEVAS HERE TO SEE PATIENT. HE ORDERED A BRAIN ATTACK CT SCAN. PATIENT WAS TRANSPORTED TO CT BY MYSELF AND THE PRIMARY TEACHER. PATIENT IS STABLE.
--- NOTE | 2020-05-31 13:00 | NUR ---
A 79, admitted to 5E, under the services of MITA Pierce DO with a diagnosis of AFIB. Chief complaint is ALTERED MENTAL STATUS . Patient arrived via stretcher from ER. Monitor applied. Initial assessment completed. Vital signs taken and recorded. MITA PIERCE DO notified of admission to the unit. Orders received. See assessment for past medical history, medications and allergies. Patient and/or family oriented to unit. [facility] visitation policy reviewed. Clothing/patient valuable form completed. ABDELRAHMAN BARRIOS
--- NOTE | 2020-05-31 13:09 | NUR ---
PATIENT HAS BEEN RETURNED TO HIS ROOM. PATIENT IS STABLE. FAMILY IS AWARE. REPORT GIVEN TO
--- NOTE | 2020-05-31 13:33 | NUR ---
OT NOTE Occupational therapy order received and chart reviewed. Patient admitted to the fifth floor this afternoon and had a stat CT of the head. He is currently under nursing care at this time. Will check back later for completion of an OT evaluation. Thank you. Coby Sandoval, OTR/L
--- NOTE | 2020-05-31 13:33 | NUR ---
PHYSICAL THERAPY PT order received and chart reviewed pt just admitted from the ED after undergoing TACOS and successful Cardioversion this AM with diagnosis of AFib with RVR. Pt admitted to floor and then CT head odered due to altered mental status and to r/o brain attack. Nurse Mary in room assessing patinet will defer therapy at this time and follow in the AM pending patient's medical status. Mulu Li PT
--- NOTE | 2020-05-31 13:36 | NUR ---
PT MEDICATED WITH MORPHINE FOR RESTLESNESS, AND COMPLAINING OF PAIN PT UNABLE TO RATE PAIN DTR AT BEDSIDE
--- NOTE | 2020-05-31 17:08 | NUR ---
DR HAMMOND NOTIFIED OF CRITICAL TROPONIN ALSO NOTIFIED OF PT HAVING A BED AT [facility] , AWAITING AMBULANCE
--- NOTE | 2020-05-31 18:10 | NUR ---
PT REQUESTED AND GIVEN MORPHINE FOR RESTLESSNESS, PAIN WILL MONITOR PT UNABLE TO RATE PAIN . FAMILY AT BEDSIDE
--- NOTE | 2020-05-31 18:54 | NUR ---
PT RESTING IN BED, EYES CLOSED. NO DSITRESS NOTED. MORPHINE APPEARS EFFECTIVE. WILLL MONITOR
--- NOTE | 2020-05-31 19:12 | NUR ---
REPORT CALLED TO [facility]
--- NOTE | 2020-05-31 19:13 | NUR ---
Discharge instructions reviewed with patient/family. Patient receptive and verbalizes understanding. Follow-up care arranged. Written instructions given to patient/family. ABDELRAHMAN BARRIOS
== END 2020-05-31 19:13 | disposition short-term general hospital (02) | DRG 280 ==
LOC: ED 20:08 → 5E 22:47 → EDHOLD 22:47 → 5E 05-31 09:55
PROVIDERS: Emergency Medicine; Internal Medicine; Student in an Organized Health Care Education/Training Program; ADMIT Student in an Organized Health Care Education/Training Program; ATTEND Student in an Organized Health Care Education/Training Program
PROC: 5A2204Z Restoration of Cardiac Rhythm, Single (ICD-10-PCS; principal; 2020-05-31)
PROC: B24BZZ4 Ultrasonography of Heart with Aorta, Transesophageal (ICD-10-PCS; 2020-05-31)
DX: I21.4 Non-ST elevation (NSTEMI) myocardial infarction (principal); R65.11 Systemic inflammatory response syndrome (SIRS) of non-infectious origin with acute organ dysfunction; N17.0 Acute kidney failure with tubular necrosis; I50.32 Chronic diastolic (congestive) heart failure; I25.811 Atherosclerosis of native coronary artery of transplanted heart without angina pectoris; D68.59 Other primary thrombophilia; I48.0 Paroxysmal atrial fibrillation; I24.8 Other forms of acute ischemic heart disease; R73.9 Hyperglycemia, unspecified; J44.9 Chronic obstructive pulmonary disease, unspecified; E87.5 Hyperkalemia; M19.90 Unspecified osteoarthritis, unspecified site; G20 Parkinson's disease; S90.416A Abrasion, unspecified lesser toe(s), initial encounter; Z66 Do not resuscitate; Z51.5 Encounter for palliative care; G62.9 Polyneuropathy, unspecified; E78.5 Hyperlipidemia, unspecified; N40.1 Benign prostatic hyperplasia with lower urinary tract symptoms; Z87.891 Personal history of nicotine dependence; Z83.3 Family history of diabetes mellitus; Z83.6 Family history of other diseases of the respiratory system; X58.XXXA Exposure to other specified factors, initial encounter; Y93.89 Activity, other specified; Y92.89 Other specified places as the place of occurrence of the external cause; Y99.8 Other external cause status